=== PATIENT | female | born 1970 | race Caucasian/White ===

== ENCOUNTER 2016-12-06 12:04 | Emergency (ER) | payer MEDICARE, MEDICAID ==
[2016-12-06] MEDS ORDERED: NORMAL SALINE 1,000 ML IV ONE (12:57)
[2016-12-06 13:46] LABS: Urine Bilirubin Negative (NEGATIVE); Urine Blood Negative /ul (NEGATIVE); Urine Ketone Negative (NEGATIVE); Urine Nitrite Negative (NEGATIVE); Urine Protein 15 mg/dL (NEGATIVE); Urine Specific Gravity >=1.030 SP.GR. (1.005-1.010); Urine Urobilinogen Normal (NORMAL)
[2016-12-06 13:50] LABS: Hematocrit 36.1 % (37.0-47.0); Hemoglobin 11.3 gm/dL (12.5-16.0); Mean Cell Volume 89.6 fl (78-100); Mean Corpuscular Hgb Conc 31.3 g/dl (32-36); Mean Platelet Volume 12.1 fl (6.0-9.5); Neutrophil # 4.3 K/mm3 (1.3-6.0); Neutrophil % 65.5 % (42-75.0); Platelet Count 211 K/mm3 (150-450); Red Blood Count 4.03 M/mm3 (4.2-5.4); Red Cell Distribution Width 14.1 % (11.5-14.0); White Blood Count 6.5 K/mm3 (4.0-10.5)
[2016-12-06 14:03] LABS: Urine Color Yellow
[2016-12-06 14:04] LABS: Urine Appearance Clear; Urine Bacteria 2+; Urine Mucus Few - 1+; Urine RBC TRACE /hpf (0-5); Urine Yeast Moderate - 2+
[2016-12-06] MEDS ORDERED: INSULIN LISPRO 100 UNITS/ML VIAL SC ONE (14:05)
[2016-12-06 14:06] LABS: ALT 25 U/L (19-67); AST 17 U/L (0-48); Alkaline Phosphatase * 127 U/L (50-170); Anion Gap 17.6 mmol/L (6.8-13.8); BUN/Creatinine Ratio 23.6 (9.0-21.6); Bilirubin, Total 0.5 mg/dL (0.0-1.1); Blood Urea Nitrogen 37 mg/dL (3-23); Ca. Corrected For Albumin 8.8 mg/dL (8.4-10.2); Calcium * 9.1 mg/dL (7.9-10.9); Carbon Dioxide 19.1 mmol/L (24-32.6); Chloride 107 mmol/L (97-106); Glucose * 166 mg/dL (70-110); Potassium 4.7 mmol/L (3.4-4.6); Sodium 139 mmol/L (132-142); Total Protein 8.2 gm/dL (6.2-8.2)
[2016-12-06] MEDS ORDERED: INSULIN LISPRO 100 UNITS/ML VIAL ONE (14:07)
[2016-12-06 14:50] VITALS: BP 119/71
--- NOTE | 2016-12-06 15:41 | ERNOTE ---
Medical Problem HPI - Narrative Date of Service: 12/06/16 - General Chief Complaint: Diabetes Related Problem Time Seen by Provider: 12/06/16 12:37 Source: patient Exam Limitations: no limitations - Immun/Allergies/Home Medications Immunizations: IMMUNIZATION HX Immunizations Up to Date Yes History of Influenza Vaccine Yes Hx Pneumococcal Vaccination Yes Allergies/Adverse Reactions: Allergies No Known Allergies Allergy (Verified 12/06/16 12:17) Home Medications: HOME MEDICATIONS Levothyroxine Sodium 75 mcg PO DAILY 10/16/12 [Last Taken Unknown] Midodrine HCl 10 mg PO BID 10/16/12 [Last Taken Unknown] Simvastatin 20 mg PO HS 10/16/12 [Last Taken Unknown] Alendronate Sodium 35 mg PO Q7D 01/03/14 [Last Taken Unknown] Atorvastatin Calcium [Lipitor] 10 mg PO DAILY 01/03/14 [Last Taken Unknown] Insulin Glargine,Hum.rec.anlog [Lantus] 12 unit SQ DAILY 01/03/14 [Last Taken Unknown] Insulin Lispro [Humalog] 4 unit SQ TID 01/03/14 [Last Taken Unknown] Tacrolimus [Prograf] 5 mg PO BID 01/03/14 [Last Taken Unknown] predniSONE [Prednisone] 5 mg PO DAILY 01/03/14 [Last Taken Unknown] Ferrous Fumarate [Iron] 55 mg PO DAILY 02/17/14 [Last Taken Unknown] Diphenoxylate HCl/Atrop Sulf [Lomotil] 2.5 mg PO QID PRN #40 tab 10/19/15 [Last Taken Unknown] Ondansetron [Zofran Odt] 4 mg PO Q6H #30 tab.rapdis 10/19/15 [Last Taken Unknown ] traMADol HCL [Ultram] 50 mg PO QID #20 tablet 10/11/16 [Last Taken Unknown] Cefuroxime Axetil [Ceftin] 250 mg PO BID #14 tablet 12/06/16 [Last Taken Unknown ] - History of Present History Narrative: Patient relates she was told to come in by Dr Salinas. Had labs and he wanted her to get IV fluids. She relates she gets frequent IV fluids. No pain over transplant site. no fever, no vomiting. nothing seems to make this better or worse. no vomiting. No CP or SOB, no abdominal pain. She initially tells me she doesnt feel like she needs to be here. Timing: other - She denies any symptoms. Modifying Factors - (Improves): Present: other - none Modifying Factors - (Worsens): Present: other - none Review of Systems - Review of Systems Constitutional: Absent: fever EYE: Absent: blurred vision ENT: Present: no symptoms reported Respiratory: Absent: shortness of breath, cough Cardiology: Absent: chest pain Gastrointestinal/Abdominal: Absent: abdominal pain Genitourinary: Absent: dysuria Musculoskeletal: Present: no symptoms reported - Patient's Past Medical History Patient History - Medical: Diabetes Type 1 Patient History - Cancer: No Hx of Cancer Patient History - Surgical Procedures: No surgical history - Family History Mother Family History - Medical: No pertinent hx Father Family History - Medical: No pertinent hx - Social History Living Situations: home Smoking Status: Current every day smoker Have you smoked in the past 12 months: Yes Do you dip or chew tobacco: No Alcohol Use: none Drug Use: none Physical Exam - Physical Exam General Appearance: Present: alert, no apparent distress. Absent: lethargic, crying Eye Exam: Normal inspection: right, PERRL: right Ears, Nose, Throat: Present: normal ENT inspection. Absent: pharyngeal erythema , pharyngeal swelling Neck: Present: normal inspection, supple Respiratory: Present: no respiratory distress, normal breath sounds, no accessory muscle use, lungs clear Cardiovascular/Chest: Present: regular rate, rhythm, normal peripheral pulses Gastrointestinal/Abdominal: Present: normal bowel sounds, nontender, nondistended, soft, no organomegaly, other - no tenderness over transplant site Back Exam: Absent: CVA tenderness (R), CVA tenderness (L) Extremity Exam: Present: normal inspection Neurological Exam: Present: alert, normal mood/affect, manager lsw II-XII nml as tested. Absent: motor weakness Skin Exam: Present: normal color ED Progress - Results and Orders Patient's Lab Results:: I have reviewed the patient's lab results. - Vital Signs Patient's Vital Signs:: I have reviewed the patient's vital signs. Vital Signs: Vital Signs 12/06/16 12/06/16 12/06/16 12:15 13:43 14:50 Temperature 35.5 C L Pulse Rate 84 84 86 Respiratory 14 12 18 Rate Blood Pressure 132/82 130/84 119/71 O2 Sat by Pulse 100 98 100 Oximetry - Progress/Reassessment Chief Complaint: Diabetes Related Problem Progress:: Improved Progress Note-Subjective: 12/06/16 15:37 patient without c/o. mild UTI. no evidence of sepsis or toxicity. no evidence of ARF. Nothing clinically to suggest acute rejection. No evidnece of DKA. I discussed the case with her Dr, Dr Salinas who recommends outpatient ABx and he will see the patient in the office. I discussed this with her. She is agreeable with the plan. I discussed warning signs and reasons to returnas wll as the need for close f/u. She is requesting to go home. Departure - Departure Clinical Impression: Dehydration, mild Disposition: Home self-care Condition: Stable Instructions: Dehydration, Adult, [id number] Additional Instructions: Rest. Fluids. Antibiotics as directed. Follow-up with Dr Salinas within 48 hours for a re-check./ Return here for fever, vomiting, abdominal pain or if your condition worsens or changes in any way. Referrals: Galo Salinas MD [Primary Care Provider] - Prescriptions: Cefuroxime Axetil [Ceftin] 250 mg PO BID #14 tablet
== END 2016-12-06 15:52 | disposition home or self-care (01) ==
LOC: ER 12:04
DX: E86.0 Dehydration (principal); F17.210 Nicotine dependence, cigarettes, uncomplicated; E10.9 Type 1 diabetes mellitus without complications; Z79.4 Long term (current) use of insulin

== ENCOUNTER 2017-07-08 05:49 | Emergency (ER) | payer MEDICARE, MEDICAID ==
[2017-07-08 06:08] LABS: Hemoglobin 12.1 gm/dL (12.5-16.0); Mean Cell Volume 88.5 fl (78-100); Mean Corpuscular Hemoglobin 28.9 pg (27-31); Mean Corpuscular Hgb Conc 32.7 g/dl (32-36); Mean Platelet Volume 12.5 fl (6.0-9.5); Neutrophil # 2.3 K/mm3 (1.3-6.0); Neutrophil % 34.3 % (42-75.0); Platelet Count 156 K/mm3 (150-450); Red Blood Count 4.18 M/mm3 (4.2-5.4); Red Cell Distribution Width 13.7 % (11.5-14.0); White Blood Count 6.7 K/mm3 (4.0-10.5)
[2017-07-08 06:17] LABS: Anion Gap 16.4 mmol/L (6.8-13.8); BUN/Creatinine Ratio 18.7 (9.0-21.6); Calcium * 8.5 mg/dL (7.9-10.9); Carbon Dioxide 19.1 mmol/L (24-32.6); Estimated Creat Clear 25.2; Potassium 4.5 mmol/L (3.4-4.6)
[2017-07-08] MEDS: NORMAL SALINE 2,000 ML IV ONE (07:09)
--- NOTE | 2017-07-08 07:29 | ERNOTE ---
<Michelle Sosa - Last Filed: 07/08/17 07:26> Dizziness ER Record Time Seen by Provider: 07/08/17 05:57 Source: patient Exam Limitations: no limitations Immunizations: IMMUNIZATION HX Immunizations Up to Date Yes History of Influenza Vaccine Yes Hx Pneumococcal Vaccination Yes Allergies/Adverse Reactions: Allergies Allergy/AdvReac Type Severity Reaction Status Date / Time No Known Allergies Allergy Verified 07/08/17 06:39 Home Medications: HOME MEDICATIONS Levothyroxine Sodium 75 mcg PO DAILY 10/16/12 [Last Taken Unknown] Midodrine HCl 10 mg PO BID 10/16/12 [Last Taken Unknown] Simvastatin 20 mg PO HS 10/16/12 [Last Taken Unknown] Alendronate Sodium 35 mg PO Q7D 01/03/14 [Last Taken Unknown] Atorvastatin Calcium [Lipitor] 10 mg PO DAILY 01/03/14 [Last Taken Unknown] Insulin Lispro [Humalog] 5 unit SQ BID 01/03/14 [Last Taken Unknown] Tacrolimus [Prograf] 5 mg PO BID 01/03/14 [Last Taken Unknown] predniSONE [Prednisone] 5 mg PO DAILY 01/03/14 [Last Taken Unknown] Ferrous Fumarate [Iron] 55 mg PO DAILY 02/17/14 [Last Taken Unknown] Diphenoxylate HCl/Atrop Sulf [Lomotil] 2.5 mg PO QID PRN #40 tab 10/19/15 [Last Taken Unknown] Ondansetron [Zofran Odt] 4 mg PO Q6H #30 tab.rapdis 10/19/15 [Last Taken Unknown ] traMADol HCL [Ultram] 50 mg PO QID #20 tablet 10/11/16 [Last Taken Unknown] Cefuroxime Axetil [Ceftin] 250 mg PO BID #14 tablet 12/06/16 [Last Taken Unknown ] Insulin Detemir [Levemir] 25 units SC QPM 07/08/17 [Last Taken Unknown] Insulin Detemir [Levemir] 28 units SC QAM 07/08/17 [Last Taken Unknown] Meclizine HCl 25 mg PO BID #10 tablet 07/08/17 [Last Taken Unknown] - History of Present Illness Narrative: Here for dizziness for three days. Pt is a noncompliant diabetic Review of Systems - Review of Systems Constitutional: Present: no symptoms reported EYE: Present: no symptoms reported ENT: Present: no symptoms reported Respiratory: Present: no symptoms reported Cardiology: Present: no symptoms reported Gastrointestinal/Abdominal: Present: no symptoms reported Genitourinary: Present: no symptoms reported Musculoskeletal: Present: no symptoms reported Neurological: Present: other - dizziness and light headedness - Patient's Past Medical History Patient History - Medical: Diabetes Type 1, Renal Failure Patient History - Cardiac/Respiratory: No pertinent hx Patient History - Cancer: No Hx of Cancer Patient History - Surgical Procedures: Appendectomy, Patient History - Other: None LMP (Calendar): 10/05/15 - Family History Mother Family History - Medical: No pertinent hx Father Family History - Medical: No pertinent hx - Social History Living Situations: home Abuse History: No History of abuse Psych History: Hx of Depression, Current tx/ever been on anti-depressants or anti-anxiety meds Smoking Status: Current every day smoker Patient requests Smoking Cessation Consult: No Initiate information on Smoking Cessation: No Alcohol Use: none Drug Use: none - Immunizations Immunizations Up to Date: Yes Hx Pneumococcal Vaccination: Yes History of Influenza Vaccine: Yes Physical Exam - Physical Exam General Appearance: Present: wd/wn, alert, no apparent distress, other - pts' blood pressure dropped 40 points systolic upon standing up and she became dizzy Head Exam: Present: normal inspection, no evidence of injury Ears, Nose, Throat: Present: normal ENT inspection Neck: Present: normal inspection, nontender, supple, full range of motion. Absent: carotid bruit Respiratory: Present: no respiratory distress, normal breath sounds, no accessory muscle use, chest nontender, lungs clear Cardiovascular/Chest: Present: regular rate, rhythm, no murmur, normal peripheral pulses Neurological Exam: Present: alert, oriented, normal mood/affect, no motor/ sensory deficits - However pt feels dizzy. Denies any headaches or visual distrubances ED Progress - Vital Signs Patient's Vital Signs:: I have reviewed the patient's vital signs. Vital Signs: Vital Signs 07/08/17 07/08/17 07/08/17 05:57 06:46 07:01 Temperature 36.5 C Pulse Rate 69 77 69 Respiratory 18 12 Rate Blood Pressure 113/72 88/49 O2 Sat by Pulse 100 100 Oximetry - Progress/Reassessment Chief Complaint: Dizziness - Transfer of Care Physician Sign Out: Michelle Sosa Receiving Physician: Nilda Finley Departure Clinical Impression: Dizziness, Dehydration, mild, Dehydration - Departure Disposition: Home self-care Instructions: Vertigo, [id number] Additional Instructions: See the ENT Doctor as scheduled on the 12 of july. Referrals: Galo Salinas MD [Primary Care Provider] - Nik Bruner MD [Courtesy Staff] - 07/12/17 Prescriptions: Meclizine HCl 25 mg PO BID #10 tablet <Nilda Finley - Last Filed: 07/08/17 20:07> Dizziness ER Record Date of Service: 07/08/17 Immunizations: IMMUNIZATION HX Immunizations Up to Date Yes History of Influenza Vaccine Yes Hx Pneumococcal Vaccination Yes ED Progress - Results and Orders Patient's Lab Results:: I have reviewed the patient's lab results. Results and Orders: Laboratory Tests 07/08/17 07/08/17 07/08/17 06:05 06:05 06:05 WBC 6.7 RBC 4.18 L Hgb 12.1 L Hct 37.0 MCV 88.5 MCH 28.9 MCHC 32.7 RDW 13.7 Plt Count 156 MPV 12.5 H Immature Gran % (Auto) 0.10 Immature Gran # (Auto) 0.01 Neutrophils % 34.3 L Lymphocytes % 51.0 Monocytes % 6.4 Eosinophils % 7.5 H Basophils % 0.7 Nucleated RBC % 0.0 Neutrophils # 2.3 Lymphocytes # 3.4 Monocytes # 0.4 Eosinophils # 0.5 Absolute Basophils 0.1 Sodium 136 Plasma Sodium 140 Potassium 4.5 Chloride 105 Carbon Dioxide 19.1 L Anion Gap 16.4 H BUN 37 H D Creatinine 1.98 H D Est GFR (Non-Af Amer) 29 L D BUN/Creatinine Ratio 18.7 Random Glucose 364 H Mean Blood Glucose 247 Hemoglobin A1c 10.0 H Calcium 8.5 TSH Urine Color Urine Appearance Urine pH Ur Specific [place] Urine Protein Urine Glucose (UA) Urine Ketones Urine Blood Urine Nitrate Urine Bilirubin Prot Sulfosalicylic Acd Urine Urobilinogen Ur Leukocyte Esterase Urine RBC Urine WBC Ur Epithelial Cells Urine Bacteria Urine Opiates Screen Barbiturate Screen Ur Phencyclidine Scrn Urine Amphetamine U Benzodiazepines Scrn Urine Cocaine Screen Urine Marijuana (THC) Serum Ketones 07/08/17 07/08/17 07/08/17 06:05 06:30 08:55 WBC RBC Hgb Hct MCV MCH MCHC RDW Plt Count MPV Immature Gran % (Auto) Immature Gran # (Auto) Neutrophils % Lymphocytes % Monocytes % Eosinophils % Basophils % Nucleated RBC % Neutrophils # Lymphocytes # Monocytes # Eosinophils # Absolute Basophils Sodium Plasma Sodium Potassium Chloride Carbon Dioxide Anion Gap BUN Creatinine Est GFR (Non-Af Amer) BUN/Creatinine Ratio Random Glucose Mean Blood Glucose Hemoglobin A1c Calcium TSH 3.734 Urine Color Yellow Urine Appearance Clear Urine pH 5.5 Ur Specific [place] 1.020 Urine Protein 15 H Urine Glucose (UA) 500 H Urine Ketones Negative Urine Blood Negative Urine Nitrate Negative Urine Bilirubin Negative Prot Sulfosalicylic Acd 1+ Urine Urobilinogen Normal Ur Leukocyte Esterase Negative Urine RBC None seen Urine WBC None seen Ur Epithelial Cells 0-5 Urine Bacteria Trace Urine Opiates Screen Barbiturate Screen Ur Phencyclidine Scrn Urine Amphetamine U Benzodiazepines Scrn Urine Cocaine Screen Urine Marijuana (THC) Serum Ketones Negative 07/08/17 08:55 WBC RBC Hgb Hct MCV MCH MCHC RDW Plt Count MPV Immature Gran % (Auto) Immature Gran # (Auto) Neutrophils % Lymphocytes % Monocytes % Eosinophils % Basophils % Nucleated RBC % Neutrophils # Lymphocytes # Monocytes # Eosinophils # Absolute Basophils Sodium Plasma Sodium Potassium Chloride Carbon Dioxide Anion Gap BUN Creatinine Est GFR (Non-Af Amer) BUN/Creatinine Ratio Random Glucose Mean Blood Glucose Hemoglobin A1c Calcium TSH Urine Color Urine Appearance Urine pH Ur Specific [place] Urine Protein Urine Glucose (UA) Urine Ketones Urine Blood Urine Nitrate Urine Bilirubin Prot Sulfosalicylic Acd Urine Urobilinogen Ur Leukocyte Esterase Urine RBC Urine WBC Ur Epithelial Cells Urine Bacteria Urine Opiates Screen Negative Barbiturate Screen Positive H Ur Phencyclidine Scrn Negative Urine Amphetamine Negative U Benzodiazepines Scrn Negative Urine Cocaine Screen Negative Urine Marijuana (THC) Negative Serum Ketones - Vital Signs Patient's Vital Signs:: I have reviewed the patient's vital signs. Vital Signs: Vital Signs 07/08/17 07/08/17 07/08/17 05:57 06:46 07:01 Temperature 36.5 C Pulse Rate 69 77 69 Respiratory 18 12 Rate Blood Pressure 113/72 88/49 O2 Sat by Pulse 100 100 Oximetry 07/08/17 07/08/17 07/08/17 07:37 08:01 08:30 Temperature Pulse Rate 69 70 66 Respiratory 14 12 14 Rate Blood Pressure 158/66 122/47 147/69 O2 Sat by Pulse 100 99 98 Oximetry 07/08/17 07/08/17 07/08/17 09:03 09:24 09:47 Temperature Pulse Rate 70 66 70 Respiratory 14 12 12 Rate Blood Pressure 137/71 140/64 141/62 O2 Sat by Pulse 100 98 100 Oximetry Plan - Plan Plan: Patient seen and examined meclizine improved dizziness and she is stable for discharge. Patient vitals 137/63 and pulse 77 and 100% pulse ox on room air
[2017-07-08] MEDS ORDERED: INSULIN REGULAR, HUMAN 100 UNITS/ML VIAL ONE (07:31)
[2017-07-08] MEDS: INSULIN REGULAR, HUMAN 100 UNITS/ML VIAL IV ONE (07:35)
[2017-07-08] MEDS ORDERED: MECLIZINE HCL 25 MG TABLET PO ONE (08:45)
[2017-07-08] MEDS ORDERED: MECLIZINE HCL 25 MG TABLET ONE (08:47)
[2017-07-08] MEDS: MECLIZINE HCL 25 MG TABLET PO ONE (08:50)
[2017-07-08 09:14] LABS: Urine Bilirubin Negative (NEGATIVE); Urine Blood Negative /ul (NEGATIVE); Urine Ketone Negative (NEGATIVE); Urine Nitrite Negative (NEGATIVE); Urine Protein 15 mg/dL (NEGATIVE); Urine Urobilinogen Normal (NORMAL); Urine pH 5.5 pH (5.0-7.0)
[2017-07-08 09:24] LABS: Urine Appearance Clear; Urine Color Yellow
[2017-07-08 09:25] LABS: Urine Bacteria TRACE; Urine RBC None Seen /hpf (0-5); Urine WBC None Seen /hpf (0-5)
[2017-07-08 09:27] LABS: Cocaine Ur Negative (NEGATIVE); Urine Benzodiazepines Negative (NEGATIVE); Urine Opiates Negative (NEGATIVE); Urine PCP Negative (NEGATIVE); Urine THC Negative (NEGATIVE)
[2017-07-08 09:40] LABS: Urine Barbiturate Positive (NEGATIVE)
[2017-07-08 09:48] VITALS: BP 141/62
== END 2017-07-08 10:30 | disposition home or self-care (01) ==
LOC: ER 05:49
DX: R42 Dizziness and giddiness (principal); E86.0 Dehydration; E10.9 Type 1 diabetes mellitus without complications; Z79.4 Long term (current) use of insulin; N19 Unspecified kidney failure; F17.200 Nicotine dependence, unspecified, uncomplicated

== ENCOUNTER 2017-09-08 14:45 | Emergency (ER) | payer MEDICARE, MEDICAID ==
[2017-09-08 15:03] VITALS: BP 143/88
--- NOTE | 2017-09-08 15:49 | ERNOTE ---
Back Pain ER HPI Date of Service: 09/08/17 Presenting Symptoms: hx chronic back pain Time Seen by Provider: 09/08/17 15:31 Immunizations: IMMUNIZATION HX Immunizations Up to Date Yes History of Influenza Vaccine No Hx Pneumococcal Vaccination Yes Allergies/Adverse Reactions: Allergies No Known Allergies Allergy (Verified 09/08/17 14:56) Home Medications: HOME MEDICATIONS Levothyroxine Sodium 75 mcg PO DAILY 10/16/12 [Last Taken Unknown] Midodrine HCl 10 mg PO BID 10/16/12 [Last Taken Unknown] Simvastatin 20 mg PO HS 10/16/12 [Last Taken Unknown] Alendronate Sodium 35 mg PO Q7D 01/03/14 [Last Taken Unknown] Atorvastatin Calcium [Lipitor] 10 mg PO DAILY 01/03/14 [Last Taken Unknown] Insulin Lispro [Humalog] 5 unit SQ BID 01/03/14 [Last Taken Unknown] Tacrolimus [Prograf] 5 mg PO BID 01/03/14 [Last Taken Unknown] predniSONE [Prednisone] 5 mg PO DAILY 01/03/14 [Last Taken Unknown] Ferrous Fumarate [Iron] 55 mg PO DAILY 02/17/14 [Last Taken Unknown] Diphenoxylate HCl/Atrop Sulf [Lomotil] 2.5 mg PO QID PRN #40 tab 10/19/15 [Last Taken Unknown] Insulin Detemir [Levemir] 25 units SC QPM 07/08/17 [Last Taken Unknown] Insulin Detemir [Levemir] 28 units SC QAM 07/08/17 [Last Taken Unknown] Meclizine HCl 25 mg PO BID #10 tablet 07/08/17 [Last Taken Unknown] Baclofen 20 mg PO TID #30 tablet 09/08/17 [Last Taken Unknown] Diclofenac Sodium 25 mg PO BID #30 tablet. 09/08/17 [Last Taken Unknown] oxyCODONE HCL/ACETAMINOPHEN [Percocet 5 MG/325 MG] 1 tab PO Q4H 09/08/17 [Last Taken Unknown] Narrative: Pt. comes in with C/o low back pain. Pt. staes taht the pain is chronic for her and she has not had any new injuries and the pain has not changed. Pt. usually sees Dr Salinas for her pain medications but is out of them but is contracted with him. Pt. states that she is scheduled for an injection in her back on the 8th. Review of Systems - Review of Systems Constitutional: Present: no symptoms reported. Absent: recent illness, fever, chills, weakness, fatigue, malaise EYE: Present: no symptoms reported ENT: Present: no symptoms reported Respiratory: Present: no symptoms reported. Absent: shortness of breath, cough , wheezing Cardiology: Present: no symptoms reported. Absent: chest pain, palpitations, edema Gastrointestinal/Abdominal: Present: no symptoms reported. Absent: nausea, vomiting, diarrhea Genitourinary: Present: no symptoms reported. Absent: frequency, pain, dysuria , hematuria, decreased urinary output, discharge Musculoskeletal: Present: back pain. Absent: muscle pain, neck pain, joint pain Skin: Present: no symptoms reported. Absent: rash, change in hair/nails Neurological: Present: no symptoms reported. Absent: headache, dizziness/light- headedness, numbness, tingling All Other Systems: All systems neg except as marked - Patient's Past Medical History Patient History - Medical: Diabetes Type 1, Renal Failure Patient History - Cardiac/Respiratory: No pertinent hx Patient History - Cancer: No Hx of Cancer Patient History - Surgical Procedures: Appendectomy, Patient History - Other: None - Family History Mother Family History - Medical: No pertinent hx Father Family History - Medical: No pertinent hx - Social History Living Situations: home Abuse History: No History of abuse Psych History: Hx of Depression, Current tx/ever been on anti-depressants or anti-anxiety meds Smoking Status: Current every day smoker - Immunizations Immunizations Up to Date: Yes Hx Pneumococcal Vaccination: Yes History of Influenza Vaccine: No Physical Exam - Physical Exam General Appearance: Present: wd/wn, alert, no apparent distress Head Exam: Present: normal inspection, no evidence of injury Eye Exam: Normal inspection: bilateral Neck: Present: normal inspection, nontender, supple, full range of motion. Absent: lymphadenopathy (R), lymphadenopathy (L) Respiratory: Present: no respiratory distress, normal breath sounds, no accessory muscle use, chest nontender, lungs clear Cardiovascular/Chest: Present: regular rate, rhythm, no murmur, normal peripheral pulses Gastrointestinal/Abdominal: Present: normal bowel sounds, nontender, nondistended, soft, no organomegaly Back Exam: Present: vertebral tenderness - L3/L4, muscle spasm - B Extremity Exam: Present: normal inspection, non-tender, normal range of motion, no edema Neurological Exam: Present: alert, oriented, normal mood/affect, no motor/ sensory deficits, [employer]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 Absent: pallor, skin rash ED Progress - Date and Time Seen: Date and Time: 09/08/17 15:46 Discussed with pt. and while she has renal insufficiency she would like to try diclofinac. Will prescribe low amount and educated pt. to take is sparingly and educated her to have her kidney function evaluated if she starts feeling poorly. - Vital Signs Patient's Vital Signs:: I have reviewed the patient's vital signs. Vital Signs: Vital Signs 09/08/17 14:59 Temperature 36.9 C Pulse Rate 77 Respiratory 16 Rate Blood Pressure 143/88 O2 Sat by Pulse 100 Oximetry - Progress/Reassessment Chief Complaint: Back Pain Departure Clinical Impression: Back pain Qualifiers: Back pain location: low back pain Chronicity: chronic Back pain laterality: bilateral Sciatica presence: without sciatica Qualified Code(s): M54.5 - Low back pain - Departure Disposition: Home self-care Condition: Good Instructions: Back Pain, Adult Additional Instructions: Please follow up wih your primary provider as planned. These medications can affect your kidneys so please take only as needed. Prescriptions: Baclofen 20 mg PO TID #30 tablet Diclofenac Sodium 25 mg PO BID #30 tablet.
== END 2017-09-08 15:49 | disposition home or self-care (01) ==
LOC: SUPCPDRO 14:45 → ER 14:45
DX: M54.5 Low back pain (principal); E10.22 Type 1 diabetes mellitus with diabetic chronic kidney disease; F17.200 Nicotine dependence, unspecified, uncomplicated

== ENCOUNTER 2017-10-28 07:57 | Emergency (ER) | payer MEDICARE, MEDICAID ==
[2017-10-28] MEDS ORDERED: NORMAL SALINE 1,000 ML IV ONE (08:24)
[2017-10-28 08:39] LABS: Hematocrit 36.6 % (37.0-47.0); Hemoglobin 11.8 gm/dL (12.5-16.0); Mean Cell Volume 90.4 fl (78-100); Mean Corpuscular Hemoglobin 29.1 pg (27-31); Mean Corpuscular Hgb Conc 32.2 g/dl (32-36); Mean Platelet Volume 11.8 fl (6.0-9.5); Neutrophil # 2.6 K/mm3 (1.3-6.0); Platelet Count 189 K/mm3 (150-450); Red Blood Count 4.05 M/mm3 (4.2-5.4); Red Cell Distribution Width 13.2 % (11.5-14.0); White Blood Count 6.7 K/mm3 (4.0-10.5)
--- NOTE | 2017-10-28 08:41 | ERNOTE ---
Medical Problem HPI - General Chief Complaint: General Assessment Time Seen by Provider: 10/28/17 08:19 Source: patient Exam Limitations: no limitations - Immun/Allergies/Home Medications Immunizations: IMMUNIZATION HX Immunizations Up to Date Yes History of Influenza Vaccine Yes Hx Pneumococcal Vaccination No Allergies/Adverse Reactions: Allergies No Known Allergies Allergy (Verified 10/28/17 08:10) Home Medications: HOME MEDICATIONS Levothyroxine Sodium 75 mcg PO DAILY 10/16/12 [Last Taken Unknown] Midodrine HCl 10 mg PO BID 10/16/12 [Last Taken Unknown] Simvastatin 20 mg PO HS 10/16/12 [Last Taken Unknown] Alendronate Sodium 35 mg PO Q7D 01/03/14 [Last Taken Unknown] Atorvastatin Calcium [Lipitor] 10 mg PO DAILY 01/03/14 [Last Taken Unknown] Insulin Lispro [Humalog] 5 unit SQ BID 01/03/14 [Last Taken Unknown] Tacrolimus [Prograf] 5 mg PO BID 01/03/14 [Last Taken Unknown] predniSONE [Prednisone] 5 mg PO DAILY 01/03/14 [Last Taken Unknown] Ferrous Fumarate [Iron] 55 mg PO DAILY 02/17/14 [Last Taken Unknown] Diphenoxylate HCl/Atrop Sulf [Lomotil] 2.5 mg PO QID PRN #40 tab 10/19/15 [Last Taken Unknown] Insulin Detemir [Levemir] 25 units SC QPM 07/08/17 [Last Taken Unknown] Insulin Detemir [Levemir] 28 units SC QAM 07/08/17 [Last Taken Unknown] Meclizine HCl 25 mg PO BID #10 tablet 07/08/17 [Last Taken Unknown] Baclofen 20 mg PO TID #30 tablet 09/08/17 [Last Taken Unknown] Diclofenac Sodium 25 mg PO BID #30 tablet. 09/08/17 [Last Taken Unknown] oxyCODONE HCL/ACETAMINOPHEN [Percocet 5 MG/325 MG] 1 tab PO Q4H 09/08/17 [Last Taken Unknown] - History of Present History Narrative: Patient presents to the emergency room because she was told by her pumper hand at the [facility] that she was dehydrated and needed to come in for IV fluids. However upon perusal of her labs I see that her hemoglobin A1c remains at 10 which be statistically her blood sugar has been running on an average of 275 and that most likely is the source of the progressing renal failure. Patient has no significant complaint at this time. Timing: unsure Review of Systems - Review of Systems Constitutional: Present: See HPI EYE: Present: no symptoms reported ENT: Present: no symptoms reported Respiratory: Present: no symptoms reported Cardiology: Present: no symptoms reported Gastrointestinal/Abdominal: Present: no symptoms reported Genitourinary: Present: no symptoms reported Musculoskeletal: Present: no symptoms reported Skin: Present: no symptoms reported Neurological: Present: no symptoms reported Endocrine: Present: no symptoms reported Hematologic/Lymphatic: Present: no symptoms reported Psych: Present: no symptoms reported - Patient's Past Medical History Patient History - Medical: Diabetes Type 1, Renal Failure Patient History - Cardiac/Respiratory: No pertinent hx Patient History - Cancer: No Hx of Cancer Patient History - Surgical Procedures: Appendectomy, Patient History - Other: None LMP (females 10-50): last week LMP (Calendar): 10/20/17 - Family History Mother Family History - Medical: No pertinent hx Father Family History - Medical: No pertinent hx - Social History Living Situations: home Abuse History: No History of abuse Psych History: Hx of Depression, Current tx/ever been on anti-depressants or anti-anxiety meds Smoking Status: Current every day smoker Have you smoked in the past 12 months: Yes Do you dip or chew tobacco: No Alcohol Use: none Drug Use: none - Immunizations Immunizations Up to Date: Yes Hx Pneumococcal Vaccination: No History of Influenza Vaccine: Yes Physical Exam - Physical Exam General Appearance: Present: wd/wn, alert, no apparent distress Eye Exam: Normal inspection: bilateral, PERRL: bilateral Ears, Nose, Throat: Present: normal ENT inspection, H, normal pharynx Neck: Present: normal inspection, nontender Respiratory: Present: no respiratory distress, normal breath sounds, no accessory muscle use, chest nontender, lungs clear Cardiovascular/Chest: Present: regular rate, rhythm, no murmur, normal peripheral pulses Gastrointestinal/Abdominal: Present: normal bowel sounds, nontender, nondistended, soft, no organomegaly Rectal Exam: Present: deferred Back Exam: Present: normal inspection, normal range of motion Extremity Exam: Present: normal inspection, non-tender, no edema, normal range of motion Neurological Exam: Present: alert, oriented, normal mood/affect Skin Exam: Present: normal color, warm/dry Lymphatic Exam: Present: no adenopathy ED Progress - Results and Orders Patient's Lab Results:: I have reviewed the patient's lab results. - Vital Signs Patient's Vital Signs:: I have reviewed the patient's vital signs. Vital Signs: Vital Signs 10/28/17 08:03 Temperature 36.4 C L Pulse Rate 94 Respiratory 12 Rate Blood Pressure 110/74 - Progress/Reassessment Chief Complaint: General Assessment Plan - Plan Plan: We will provide a liter of normal saline to the patient to try to provide some component of protective mechanism for her kidneys, however she was counseled at length that if she does not get her every blood sugar down below 130 there is a high likelihood that this renal failure is only going to progress. Even her last two fasting blood sugars have been 247 which is certainly indicative of her blood sugars remaining high and that is being reflected in the elevated hemoglobin A1c of 10.0. Patient will be referred back to both her family physician and her pumper hand at the [facility]. Departure Clinical Impression: Dehydration, mild Chronic kidney disease (CKD) Qualifiers: Chronic kidney disease stage: stage 4 (severe) Qualified Code(s): N18.4 - Chronic kidney disease, stage 4 (severe) - Departure Disposition: Home self-care Condition: Good Instructions: Chronic Kidney Disease, K[place]-Vlwy, End-Stage Kidney Disease Additional Instructions: try to maintain your blood sugar below 130 Referrals: Galo Salinas MD [Primary Care Provider] -
[2017-10-28 08:55] LABS: ALT 17 U/L (19-67); AST 13 U/L (0-48); Albumin * 3.7 gm/dl (3.4-5.0); Alkaline Phosphatase * 121 U/L (50-170); Anion Gap 13.6 mmol/L (6.8-13.8); BUN/Creatinine Ratio 15.2 (9.0-21.6); Bilirubin, Total 0.2 mg/dL (0.0-1.1); Blood Urea Nitrogen 47 mg/dL (3-23); Ca. Corrected For Albumin 9.3 mg/dL (8.4-10.2); Calcium * 9.4 mg/dL (7.9-10.9); Carbon Dioxide 27.4 mmol/L (24-32.6); Chloride 106 mmol/L (97-106); Glucose * 115 mg/dL (70-110); Magnesium 2.4 mg/dL (1.2-2.8); Sodium 143 mmol/L (132-142)
[2017-10-28 09:51] VITALS: BP 146/69
== END 2017-10-28 09:41 | disposition home or self-care (01) ==
LOC: ER 07:57
DX: F17.200 Nicotine dependence, unspecified, uncomplicated; N18.4 Chronic kidney disease, stage 4 (severe); E86.0 Dehydration
CPT/HCPCS: 36415; 80053; 82009; 83735; 85025; 96360; 99285

== ENCOUNTER 2018-07-28 04:25 | Observation (INO) | payer MEDICAID, MEDICARE ==
--- NOTE | 2018-07-28 04:57 | ERNOTE ---
Neuro HPI ER Record Presenting Symptoms: confusion Time Seen by Provider: 07/28/18 04:25 Source: EMS Exam Limitations: clinical condition Immunizations: IMMUNIZATION HX Immunizations Up to Date Yes History of Influenza Vaccine Yes Hx Pneumococcal Vaccination Yes Allergies/Adverse Reactions: Allergies Allergy/AdvReac Type Severity Reaction Status Date / Time No Known Allergies Allergy Verified 07/28/18 05:09 Home Medications: HOME MEDICATIONS Levothyroxine Sodium 75 mcg PO DAILY 10/16/12 [Last Taken Unknown] Midodrine HCl 10 mg PO BID 10/16/12 [Last Taken Unknown] Simvastatin 20 mg PO HS 10/16/12 [Last Taken Unknown] Alendronate Sodium 35 mg PO Q7D 01/03/14 [Last Taken Unknown] Tacrolimus [Prograf] 5 mg PO BID 01/03/14 [Last Taken Unknown] predniSONE [Prednisone] 5 mg PO DAILY 01/03/14 [Last Taken Unknown] Diphenoxylate HCl/Atrop Sulf [Lomotil] 2.5 mg PO QID PRN #40 tab 10/19/15 [Last Taken Unknown] aspirin 81 mg tablet,delayed release 81 mg PO DAILY 07/17/18 [Last Taken Unknown ] kamkuvoovh-sntrsqtfhcexl-wckyhrym 50 mg-325 mg-40 mg capsule 2 cap PO Q6H PRN cap 07/17/18 [Last Taken Unknown] cholecalciferol (vitamin D3) 5,000 unit capsule 5,000 unit PO DAILY 07/17/18 [ Last Taken Unknown] glucagon (human recombinant) 1 mg injection kit 1 mg SUB-Q ONCE PRN ea [Last Taken Unknown] loperamide 2 mg capsule 2 mg PO Q4H 07/17/18 [Last Taken Unknown] magnesium oxide 400 mg tablet 400 mg PO BID tab 07/17/18 [Last Taken Unknown] mycophenolate mofetil 500 mg tablet 1,000 mg PO BID tab 07/17/18 [Last Taken Unknown] omeprazole 20 mg capsule,delayed release 20 mg PO BID 07/17/18 [Last Taken Unknown] ondansetron 4 mg disintegrating tablet 4 mg PO Q6H PRN 07/17/18 [Last Taken Unknown] polysaccharide iron complex 150 mg iron capsule 150 mg PO DAILY cap 07/17/18 [ Last Taken Unknown] promethazine 25 mg tablet 25 mg PO Q4H 07/17/18 [Last Taken Unknown] oxycodone-acetaminophen 5 mg-325 mg tablet 1 tab PO Q6H PRN tab 07/18/18 [Last Taken Unknown] insulin detemir (U-100) 100 unit/mL subcutaneous solution 6 unit SUB-Q TIDWM ml 07/26/18 [Last Taken Unknown] insulin glargine (U-300) 300 unit/mL (1.5 mL) subcutaneous pen 18 unit SUB-Q BID ml 07/26/18 [Last Taken Unknown] - History of Present Illness Narrative: EMS reports that per family patient was acting confused during the night. Patient answers name and keeps saying ow without being able to state where she has pain she is a type 1 diabetic, status post kidney transplant x2 and pancreas transplant, non compliant with treatment Later reports on the phone to the nurse that patient started to act confused around 01:00 has had a prior episode of this, but he can't remember what the diagnosis was Patient has chronic pain, has been receiving percocet from Dr Salinas #120 per month, had early refill on 07/11 (#150). When she had an office visit with Dr Stokes two days ago (07/26) she had used up all of it and Dr Stokes refused a refill but suggested referral to a pain clinic Onset: cannot confirm onset - Character of Deficits Prior Treament: Reports: recently seen Review of Systems - Narrative Narrative: unable to assess Medical History (Last Reviewed 07/28/18 @ 04:44 by Dawn Garibay MD) Diabetes Onset Date: ~1980 Epilepsy Hypoglycemia Hypotension Hypothyroidism Patellofemoral syndrome Onset Date: ~09/19/13 CVA (cerebral vascular accident) Surgical History: Surgical History (Last Reviewed 07/28/18 @ 04:44 by Dawn Garibay MD) H/O section Onset Date: ~09/1991 H/O dilation and curettage Onset Date: ~1989 H/O eye surgery Onset Date: ~1990 Kidney transplant recipient Onset Date: ~2004 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 Onset Date: ~2005 Family History: Family History (Last Reviewed 07/28/18 @ 05:09 by Traci Collins RN) Mother Hypertension Grandfather Cancer Grandmother Cancer Social History: Preferred Language Persian Abuse History No History of abuse Psych History No pertinent hx,Hx of Anxiety,Hx of Depression, Hx of Bipolar Disorder Physical Exam - Physical Exam General Appearance: Present: wd/wn, alert, no apparent distress, other - confused Head Exam: Present: normal inspection, no evidence of injury Eye Exam: Normal inspection: bilateral, PERRL: bilateral Ears, Nose, Throat: Present: normal pharynx Neck: Present: normal inspection, nontender Respiratory: Present: no respiratory distress, normal breath sounds, lungs clear Cardiovascular/Chest: Present: regular rate, rhythm, no murmur Gastrointestinal/Abdominal: Present: nontender, nondistended, soft Extremity Exam: Present: no edema Neurological Exam: Present: alert, other - patient answers question of name appropiately, but answers name of town or 'ow' to other questions, doesn't follow commands but moves all extremties. Absent: disoriented to time, disoriented to place, disoriented to situation Skin Exam: Present: normal color, warm/dry Darshan Coma Scale - Assess Eye Opening: Spontaneous Motor: Localizes to Pain Verbal: Confused - Total Coma Scale Total: 13 Initial Stroke Assessment - NIH Stroke Scale Level of Consciousness: Alert LOC Questions (Year and Age): Answers neither correctly LOC Commands (open/close eyes/fist): Performs neither correct Facial Palsy: Normal movement Right Arm Motor (10 sec hold): No drift Left Arm Motor (10 sec hold): No drift Dysarthria (speech clarity): Normal articulation ED Progress - Results and Orders Patient's Lab Results:: I have reviewed the patient's lab results. - Vital Signs Patient's Vital Signs:: I have reviewed the patient's vital signs. Vital Signs: Vital Signs 07/28/18 04:30 Temperature 36.5 C Pulse Rate 70 Respiratory Rate 15 Blood Pressure 189/64 H O2 Sat by Pulse Oximetry 100 - EKG EKG: NSR, nonspecific ST T wave changes EKG read: Interp. by me - CT/Ultrasound CT/Ultrasound Narrative: CT: microvascular gliosis - Progress/Reassessment Chief Complaint: Altered Mental Status Progress Note-Subjective: 07/28/18 05:51 patient sleeping, O2sat 99%, BP 135/60 07/28/18 06:20 patient's vitals stable but hard to wake up, responds to sternal rub only 07/28/18 06:36 no change after giving narcan 0.5mg 07/28/18 06:[address] Eastman, okay to admit for observation Departure Clinical Impression: Confusion, Lethargic - Departure Disposition: Still a patient Condition: Stable
[2018-07-28 04:58] LABS: Mean Cell Volume 90.2 fl (78-100); Mean Corpuscular Hemoglobin 29.2 pg (27-31); Mean Corpuscular Hgb Conc 32.4 g/dl (32-36); Mean Platelet Volume 12.4 fl (8-12.5); Neutrophil # 6.7 K/mm3 (1.3-6.0); Neutrophil % 67.4 % (42-75.0); Platelet Count 152 K/mm3 (150-450); Red Blood Count 3.77 M/mm3 (4.2-5.4); Red Cell Distribution Width 14.6 % (11.5-14.0)
[2018-07-28 05:11] LABS: Urine Bilirubin Negative (NEGATIVE); Urine Ketone 5 mg/dL (NEGATIVE); Urine Nitrite Negative (NEGATIVE); Urine Protein 15 mg/dL (NEGATIVE); Urine Specific Gravity 1.015 SP.GR. (1.005-1.010); Urine Urobilinogen Normal (NORMAL)
[2018-07-28 05:12] LABS: ALT 16 U/L (19-67); AST 12 U/L (0-48); Alkaline Phosphatase * 116 U/L (50-170); Anion Gap 13.4 mmol/L (6.8-13.8); BUN/Creatinine Ratio 17.6 (9.0-21.6); Bilirubin, Total 0.2 mg/dL (0.0-1.1); Blood Urea Nitrogen 41 mg/dL (3-23); Ca. Corrected For Albumin 8.7 mg/dL (8.4-10.2); Carbon Dioxide 24.8 mmol/L (24-32.6); Chloride 102 mmol/L (97-106); Glucose * 309 mg/dL (70-110); Potassium 4.2 mmol/L (3.4-4.6); Sodium 136 mmol/L (132-142); Total Protein 8.1 gm/dL (6.2-8.2)
[2018-07-28 05:16] LABS: Urine Blood 10 /ul (NEGATIVE)
[2018-07-28 05:17] LABS: Urine Appearance Slightly Cloudy (CLEAR); Urine Bacteria 2+; Urine Color Yellow; Urine RBC 0-5 /hpf (0-5)
[2018-07-28 05:22] LABS: Cocaine Ur Negative (NEGATIVE); Urine Benzodiazepines Negative (NEGATIVE); Urine Opiates Negative (NEGATIVE); Urine PCP Negative (NEGATIVE); Urine THC Negative (NEGATIVE)
[2018-07-28 05:24] LABS: Urine Barbiturate Positive (NEGATIVE)
[2018-07-28] MEDS: NORMAL SALINE 1,000 ML IV ONE ×2 (06:00→11:34)
[2018-07-28] MEDS ORDERED: NALOXONE HCL 1 MG/1 ML SYRG IV ONE (06:24)
[2018-07-28] MEDS ORDERED: NALOXONE HCL 1 MG/1 ML SYRG ONE (06:25)
--- NOTE | 2018-07-28 10:18 | HP ---
Chief Complaint - Chief Complaint Date of Service: 07/28/18 Time of Service: 10:12 Chief Complaint: altered mental status History of Present Illness: Lady Miller,, is a 48-year-old white female, recently established care with Dr. Stokes , with past medical history of diabetes mellitus type 1, cerebrovascular accident, hypothyroidism, kidney transplants x 2 , Mograine who was admitted to the hospital on 07/28/2018 because of altered mental status. The patient does not respond or answer my questions and does not follow my commands. She will open her eyes at times but closes it again. I am not able to get a history from her. Based on the emergency room notes, the patient was acting confused during the night. She has a history of chronic pain syndrome and has been receiving Percocet from Dr. Salinas. She recently established care with Dr. Stokes and was asking for a refill. She was referred to a pain clinic. Her urine drug screen was negative except for barbiturate. She takes Butalbital/Acetominophen for her Migraine. Her acemoniphen level was normal therefore she likely has no barbiturate overdose. Her Cr is 2.33. Her Head CTS showed no acute intracranial process going on. WBC was normal. Her UA showed bacteruria but no nitrartes, leukocyte esterase. She was given 1 dose of narcan in the emergency room which did not improve her mental status. As per ED physician she had to do sternal rub to wake her up but then she would just go back to sleep. Patient answered her name and kept saying "ow" when she is awake without being able to state where she has pain She was then admitted for further observation. 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 Onset Date: ~2005 Family History: Family History (Last Reviewed 07/28/18 @ 05:09 by Traci Collins RN) Mother Hypertension Grandfather Cancer Grandmother Cancer Social History: Preferred Language Belarusian Smoking Status Never smoker Have you smoked in the past 12 No months Abuse History No History of abuse Psych History No pertinent hx,Hx of Anxiety,Hx of Depression, Hx of Bipolar Disorder Review Of Systems (GEN) - Review of Systems Additional Comments: unable to obtain due to altered mental status Immunizations: IMMUNIZATION HX Immunizations Up to Date Yes History of Influenza Vaccine Yes Hx Pneumococcal Vaccination Yes Allergies/Adverse Reactions: Allergies Allergy/AdvReac Type Severity Reaction Status Date / Time No Known Allergies Allergy Verified 07/28/18 05:09 Home Medications: HOME MEDICATIONS Levothyroxine Sodium 75 mcg PO DAILY 10/16/12 [Last Taken Unknown] Midodrine HCl 10 mg PO BID 10/16/12 [Last Taken Unknown] Simvastatin 20 mg PO HS 10/16/12 [Last Taken Unknown] Alendronate Sodium 35 mg PO Q7D 01/03/14 [Last Taken Unknown] Tacrolimus [Prograf] 5 mg PO BID 01/03/14 [Last Taken Unknown] predniSONE [Prednisone] 5 mg PO DAILY 01/03/14 [Last Taken Unknown] Diphenoxylate HCl/Atrop Sulf [Lomotil] 2.5 mg PO QID PRN #40 tab 10/19/15 [Last Taken Unknown] aspirin 81 mg tablet,delayed release 81 mg PO DAILY 07/17/18 [Last Taken Unknown ] hevciwrapp-tvgrlcgddzunt-proqxtxr 50 mg-325 mg-40 mg capsule 2 cap PO Q6H PRN cap 07/17/18 [Last Taken Unknown] cholecalciferol (vitamin D3) 5,000 unit capsule 5,000 unit PO DAILY 07/17/18 [ Last Taken Unknown] glucagon (human recombinant) 1 mg injection kit 1 mg SUB-Q ONCE PRN ea [Last Taken Unknown] loperamide 2 mg capsule 2 mg PO Q4H 07/17/18 [Last Taken Unknown] magnesium oxide 400 mg tablet 400 mg PO BID tab 07/17/18 [Last Taken Unknown] mycophenolate mofetil 500 mg tablet 1,000 mg PO BID tab 07/17/18 [Last Taken Unknown] omeprazole 20 mg capsule,delayed release 20 mg PO BID 07/17/18 [Last Taken Unknown] ondansetron 4 mg disintegrating tablet 4 mg PO Q6H PRN 07/17/18 [Last Taken Unknown] polysaccharide iron complex 150 mg iron capsule 150 mg PO DAILY cap 07/17/18 [ Last Taken Unknown] promethazine 25 mg tablet 25 mg PO Q4H 07/17/18 [Last Taken Unknown] oxycodone-acetaminophen 5 mg-325 mg tablet 1 tab PO Q6H PRN tab 07/18/18 [Last Taken Unknown] insulin detemir (U-100) 100 unit/mL subcutaneous solution 6 unit SUB-Q TIDWM ml 07/26/18 [Last Taken Unknown] insulin glargine (U-300) 300 unit/mL (1.5 mL) subcutaneous pen 18 unit SUB-Q BID ml 07/26/18 [Last Taken Unknown] Exam - Exam Vital Signs: Vital Signs - Last Taken Temp 36.7 C 07/28/18 09:00 Pulse 67 07/28/18 09:00 Resp 18 07/28/18 09:00 BP 188/76 H 07/28/18 09:00 Pulse Ox 100 07/28/18 09:00 Constitutional: Present: Alert - AAO x 1 - wakes up at tomes to name call but at times only to sternal rub Eye Exam: bilateral eye: normal inspection, PERRL - sluggishly reactive, EOMI Neck: Present: supple Respiratory: Present: decreased breath sounds, No rales, No wheezing Cardiovascular/Chest: Present: regular rate, rhythm, no JVD, no murmur Abdomen: Present: Normal bowel sounds, soft, nontender, nondistended Extremity: Present: no pedal edema Neurologic: Present: other - AAO x1, moves extremities spontaneously on observation Diagnostic Studies: Abnormal Lab Results 07/28/18 07/28/18 07/28/18 Range/Units 04:55 04:55 04:55 RBC 3.77 L (4.2-5.4) M/mm3 Hgb 11.0 L (12.5-16.0) gm/dL Hct 34.0 L (37.0-47.0) % RDW 14.6 H (11.5-14.0) % Immature Gran # (Auto) 0.04 H (0.000-0.0310) K/mm3 Neutrophils # 6.7 H (1.3-6.0) K/mm3 VBG pH 7.302 L (7.32-7.43) BUN 41 H (3-23) mg/dL Creatinine 2.33 H D (0.4-1.4) mg/dL Est GFR (Non-Af Amer) 24 L D (60-130) mL/min Random Glucose 309 H (70-110) mg/dL ALT 16 L (19-67) U/L Urine Protein (NEGATIVE) mg/dL Urine Glucose (UA) (NEGATIVE) mg/dL Urine Blood (NEGATIVE) /ul Urine WBC (0-5) /hpf Ur Epithelial Cells (0-5) /hpf Urine Bacteria (NONE) Acetaminophen (10.0-30.0) mcg/mL Barbiturate Screen (NEGATIVE) 07/28/18 07/28/18 07/28/18 Range/Units 04:59 04:59 06:32 RBC (4.2-5.4) M/mm3 Hgb (12.5-16.0) gm/dL Hct (37.0-47.0) % RDW (11.5-14.0) % Immature Gran # (Auto) (0.000-0.0310) K/mm3 Neutrophils # (1.3-6.0) K/mm3 VBG pH (7.32-7.43) BUN (3-23) mg/dL Creatinine (0.4-1.4) mg/dL Est GFR (Non-Af Amer) (60-130) mL/min Random Glucose (70-110) mg/dL ALT (19-67) U/L Urine Protein 15 H (NEGATIVE) mg/dL Urine Glucose (UA) 100 H (NEGATIVE) mg/dL Urine Blood 10 H (NEGATIVE) /ul Urine WBC 5-10 H (0-5) /hpf Ur Epithelial Cells 5-10 H (0-5) /hpf Urine Bacteria 2+ H (NONE) Acetaminophen Less than 0.2 L (10.0-30.0) mcg/mL Barbiturate Screen Positive H (NEGATIVE) Laboratory Results WBC 10.0 K/mm3 (4.0-10.5) 07/28/18 04:55 RBC 3.77 M/mm3 (4.2-5.4) L 07/28/18 04:55 Hgb 11.0 gm/dL (12.5-16.0) L 07/28/18 04:55 Hct 34.0 % (37.0-47.0) L 07/28/18 04:55 MCV 90.2 fl (78-100) 07/28/18 04:55 MCH 29.2 pg (27-31) 07/28/18 04:55 MCHC 32.4 g/dl (32-36) 07/28/18 04:55 RDW 14.6 % (11.5-14.0) H 07/28/18 04:55 Plt Count 152 K/mm3 (150-450) 07/28/18 04:55 MPV 12.4 fl (8-12.5) 07/28/18 04:55 Immature Gran % (Auto) 0.40 % (0.001-0.429) 07/28/18 04:55 Immature Gran # (Auto) 0.04 K/mm3 (0.000-0.0310) H 07/28/18 04:55 Neutrophils % 67.4 % (42-75.0) 07/28/18 04:55 Lymphocytes % 24.4 % (20-51) 07/28/18 04:55 Monocytes % 5.6 % (0.0-9) 07/28/18 04:55 Eosinophils % 1.9 % (0.0-3.0) 07/28/18 04:55 Basophils % 0.3 % (0.0-1.0) 07/28/18 04:55 Nucleated RBC % 0.0 k/mm3 (0-1) 07/28/18 04:55 Neutrophils # 6.7 K/mm3 (1.3-6.0) H 07/28/18 04:55 Lymphocytes # 2.44 k/mm3 (1.5-3.5) 07/28/18 04:55 Monocytes # 0.6 k/mm3 (0.0-1.0) 07/28/18 04:55 Eosinophils # 0.2 k/mm3 (0.0-0.7) 07/28/18 04:55 Absolute Basophils 0.0 k/mm3 (0.0-0.1) 07/28/18 04:55 VBG pH 7.302 (7.32-7.43) L 07/28/18 04:55 Sodium 136 mmol/L (132-142) 07/28/18 04:55 Plasma Sodium 139 mmol/L (130-142) 07/28/18 04:55 Potassium 4.2 mmol/L (3.4-4.6) 07/28/18 04:55 Chloride 102 mmol/L (97-106) 07/28/18 04:55 Carbon Dioxide 24.8 mmol/L (24-32.6) 07/28/18 04:55 Anion Gap 13.4 mmol/L (6.8-13.8) 07/28/18 04:55 BUN 41 mg/dL (3-23) H 07/28/18 04:55 Creatinine 2.33 mg/dL (0.4-1.4) H D 07/28/18 04:55 Est GFR (Non-Af Amer) 24 mL/min (60-130) L D 07/28/18 04:55 BUN/Creatinine Ratio 17.6 (9.0-21.6) 07/28/18 04:55 Random Glucose 309 mg/dL (70-110) H 07/28/18 04:55 Calcium 9.0 mg/dL (7.9-10.9) 07/28/18 04:55 Calcium Adj for Albumin 8.7 mg/dL (8.4-10.2) 07/28/18 04:55 Total Bilirubin 0.2 mg/dL (0.0-1.1) 07/28/18 04:55 AST 12 U/L (0-48) 07/28/18 04:55 ALT 16 U/L (19-67) L 07/28/18 04:55 Alkaline Phosphatase 116 U/L (50-170) 07/28/18 04:55 Total Protein 8.1 gm/dL (6.2-8.2) 07/28/18 04:55 Albumin 4.0 gm/dl (3.4-5.0) 07/28/18 04:55 Urine Color Yellow 07/28/18 04:59 Urine Appearance Slightly cloudy (CLEAR) 07/28/18 04:59 Urine pH 6.0 pH (5.0-7.0) 07/28/18 04:59 Ur Specific [place] 1.015 SP.GR. (1.005-1.010) 07/28/18 04:59 Urine Protein 15 mg/dL (NEGATIVE) H 07/28/18 04:59 Urine Glucose (UA) 100 mg/dL (NEGATIVE) H 07/28/18 04:59 Urine Ketones 5 mg/dL (NEGATIVE) 07/28/18 04:59 Urine Blood 10 /ul (NEGATIVE) H 07/28/18 04:59 Urine Nitrate Negative (NEGATIVE) 07/28/18 04:59 Urine Bilirubin Negative mg/dl (NEGATIVE) 07/28/18 04:59 Prot Sulfosalicylic Acd Negative mg/dL (0) 07/28/18 04:59 Urine Urobilinogen Normal EU/dl (NORMAL) 07/28/18 04:59 Ur Leukocyte Esterase Negative /ul (NEGATIVE) 07/28/18 04:59 Urine RBC 0-5 /hpf (0-5) 07/28/18 04:59 Urine WBC 5-10 /hpf (0-5) H 07/28/18 04:59 Ur Epithelial Cells 5-10 /hpf (0-5) H 07/28/18 04:59 Urine Bacteria 2+ (NONE) H 07/28/18 04:59 Urine Culture Comments Culture to follow 07/28/18 04:59 Urine Opiates Screen Negative (NEGATIVE) 07/28/18 04:59 Acetaminophen Less than 0.2 mcg/mL (10.0-30.0) L 07/28/18 06:32 Barbiturate Screen Positive (NEGATIVE) H 07/28/18 04:59 Ur Phencyclidine Scrn Negative (NEGATIVE) 07/28/18 04:59 Urine Amphetamine Negative (NEGATIVE) 07/28/18 04:59 U Benzodiazepines Scrn Negative (NEGATIVE) 07/28/18 04:59 Urine Cocaine Screen Negative (NEGATIVE) 07/28/18 04:59 Urine Marijuana (THC) Negative (NEGATIVE) 07/28/18 04:59 Serum Ketones Negative (NEGATIVE) 07/28/18 04:55 Assessment/Plan - Assessment/Plan (1) Confusion Assessment: etiology ? her serum ketones are normal . Uncontrolled Diabetes mellitus due to noncompliance/dietary indescretion vs possible UTI. r/o Hyperosmolar hyperglycemic state. will get ABG and serum osmolality. her calculated serum osmolaltiy though is 303. will calculate for osmolaly gap when her measured osmolal gap results come back. ADDENDUM: Her ABG came back with Non AG Metabolic acidosis with Respiratory alkalosis. 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 Will try NaHCO3 650 mg PO TID. joe continue with IVF. Will defer insulin drip and just pu her on accucheck with Humalog coverage and continue wit her long acting insulin. Problem: Acute (2) Lethargic Assessment: etiology? same as 1. Problem: Acute (3) Diabetes mellitus type 1 Assessment: BS is elevated but serum ketones are normal. Problem: Chronic (4) Migraine Problem: Chronic Qualifiers: Migraine type: without aura Status migrainosus presence: without status migrainosus Intractability: not intractable Qualified Code(s): G43.009 - Migraine without aura, not intractable, without status migrainosus (5) Chronic kidney disease (CKD) Problem: Chronic Qualifiers: Chronic kidney disease stage: stage 4 (severe) Qualified Code(s): N18.4 - Chronic kidney disease, stage 4 (severe) (6) History of CVA (cerebrovascular accident) Problem: Chronic (7) History of kidney transplant Problem: Chronic
[2018-07-28] MEDS ORDERED: GLUCAGON,HUMAN RECOMBINANT 1 MG VIAL IJ PRN (11:09)
[2018-07-28] MEDS ORDERED: BUTALB/ACETAMINOPHEN/CAFFEINE 1 TAB TABLET PO PRN (11:09)
[2018-07-28] MEDS ORDERED: oxyCODONE HCL/ACETAMINOPHEN 1 TAB TABLET PO PRN (11:09)
[2018-07-28 11:49] LABS: BUN/Creatinine Ratio 19.8 (9.0-21.6); Calcium * 8.7 mg/dL (7.9-10.9); Carbon Dioxide 20.6 mmol/L (24-32.6); Estimated Creat Clear 27.8; Magnesium 1.8 mg/dL (1.2-2.8); Phosphorus 3.3 mg/dL (2.2-4.2); Potassium 4.6 mmol/L (3.4-4.6)
[2018-07-28] MEDS: INSULIN LISPRO 100 UNITS/ML VIAL SC SCH ×2 (11:55→16:42)
[2018-07-28] MEDS: SODIUM BICARBONATE 650 MG TABLET PO SCH (16:42)
[2018-07-28] MEDS: MYCOPHENOLATE MOFETIL 500 MG TABLET PO SCH (20:35)
[2018-07-28] MEDS: MIDODRINE HCL 2.5 MG TABLET PO SCH (20:35)
[2018-07-28] MEDS: INSULIN GLARGINE,HUM.REC.ANLOG 100 UNITS/ML VIAL SC SCH (20:36)
[2018-07-28] MEDS: TACROLIMUS ANHYDROUS 0.5 MG CAPSULE PO SCH (20:36)
[2018-07-29] MEDS ORDERED: LEVOTHYROXINE SODIUM 75 MCG TABLET PO SCH (07:00)
[2018-07-29] MEDS: INSULIN LISPRO 100 UNITS/ML VIAL SC SCH (07:09)
[2018-07-29] MEDS: TACROLIMUS ANHYDROUS 0.5 MG CAPSULE PO SCH (08:49)
[2018-07-29] MEDS: SODIUM BICARBONATE 650 MG TABLET PO SCH (08:51)
[2018-07-29] MEDS: MIDODRINE HCL 2.5 MG TABLET PO SCH (08:52)
[2018-07-29] MEDS: MYCOPHENOLATE MOFETIL 500 MG TABLET PO SCH (08:52)
[2018-07-29] MEDS: INSULIN GLARGINE,HUM.REC.ANLOG 100 UNITS/ML VIAL SC SCH (08:53)
[2018-07-29] MEDS ORDERED: predniSONE 5 MG TABLET PO SCH (09:00)
[2018-07-29] MEDS ORDERED: CHOLECALCIFEROL 5,000 UNIT TABLET PO SCH (09:00)
[2018-07-29] MEDS ORDERED: IRON POLYSACCHARIDE COMPLEX 1 CAP CAPSULE PO SCH (09:00)
[2018-07-29] MEDS ORDERED: ASPIRIN 81 MG TABLET.DR PO SCH (09:00)
--- NOTE | 2018-07-29 09:00 | DS ---
(1) Lethargic Problem: Resolved (2) Confusion Problem: Resolved (3) Uncontrolled blood glucose Problem: Acute (4) Diabetes mellitus type 1 Problem: Chronic Qualifiers: Diabetes mellitus complication status: with kidney complications Diabetes mellitus complication detail: with chronic kidney disease Chronic kidney disease stage: stage 4 (severe) Qualified Code(s): E10.22 - Type 1 diabetes mellitus with diabetic chronic kidney disease; N18.4 - Chronic kidney disease, stage 4 (severe) (5) Migraine Problem: Chronic Qualifiers: Migraine type: without aura Status migrainosus presence: without status migrainosus Intractability: not intractable Qualified Code(s): G43.009 - Migraine without aura, not intractable, without status migrainosus (6) Chronic kidney disease (CKD) Problem: Chronic Qualifiers: Chronic kidney disease stage: stage 4 (severe) Qualified Code(s): N18.4 - Chronic kidney disease, stage 4 (severe) (7) History of CVA (cerebrovascular accident) Problem: Chronic (8) History of kidney transplant Problem: Chronic Description of Stay: Lady Miller,, is a 48-year-old white female, recently established care with Dr. Stokes , with past medical history of diabetes mellitus type 1, cerebrovascular accident, hypothyroidism, kidney transplants x 2 , Mograine who was admitted to the hospital on 07/28/2018 because of altered mental status. The patient does not respond or answer my questions and does not follow my commands. She will open her eyes at times but closes it again. I am not able to get a history from her. Based on the emergency room notes, the patient was acting confused during the night. She has a history of chronic pain syndrome and has been receiving Percocet from Dr. Salinas. She recently established care with Dr. Stokes and was asking for a refill. She was referred to a pain clinic. Her urine drug screen was negative except for barbiturate. She takes Butalbital/Acetominophen for her Migraine. Her acemoniphen level was normal therefore she likely has no barbiturate overdose. Her Cr is 2.33. Her Head CTS showed no acute intracranial process going on. WBC was normal. Her UA showed bacteruria but no nitrartes, leukocyte esterase. She was given 1 dose of narcan in the emergency room which did not improve her mental status. As per ED physician she had to do sternal rub to wake her up but then she would just go back to sleep. Patient answered her name and kept saying "ow" when she is awake without being able to state where she has pain She was then admitted for further observation. She was started back on long acting insulin ( lantus as we did not have Toujeo solostar) and put on Humalog before meals. She had a BS of 61 this morning and went up to 178 after breakfast. This could be due to the fact that she takes levermir TID ( lingering effects especially with CRF) at home before her meals on her med list on top of what she received on the floor. She did not have ketonemia but ABF showed Non AG Metabolic acidosi with respiratory alkalosis . She had a positive UAG with urine pH of 6 but a normal K and also Cl. 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 She was started on PO NaHCO3. She is AAO x 2 but answers questions appropriately. She says she did not miss her medications and is compliant with her diet. She says that she could have a UTI as she gets it often and she does not have any s/sx when it happens. Her preliminary report though showed NG on her urinalysis. She is stable to be discharge and follow up with her PCP . Procedures Performed: none Results and Findings: Pending Mircobiology Results 07/28/18 05:18 Urine,Catheterized Urine Culture - Preliminary No Growth Lab Pending Results 07/28/18 04:53: Ur Random Sodium 53 07/28/18 04:53: Ur Random Chloride 44 L 07/28/18 04:53: Ur Random Potassium 19.2 07/28/18 04:55: WBC 10.0, RBC 3.77 L, Hgb 11.0 L, Hct 34.0 L, MCV 90.2, MCH 29.2 , MCHC 32.4, RDW 14.6 H, Plt Count 152, MPV 12.4, Immature Gran % (Auto) 0.40, Immature Gran # (Auto) 0.04 H, Neutrophils % 67.4, Lymphocytes % 24.4, Monocytes % 5.6, Eosinophils % 1.9, Basophils % 0.3, Nucleated RBC % 0.0, Neutrophils # 6.7 H, Lymphocytes # 2.44, Monocytes # 0.6, Eosinophils # 0.2, Absolute Basophils 0.0 07/28/18 04:55: Sodium 136, Plasma Sodium 139, Potassium 4.2, Chloride 102, Carbon Dioxide 24.8, Anion Gap 13.4, BUN 41 H, Creatinine 2.33 H D, Est GFR (Non -Af Amer) 24 L D, BUN/Creatinine Ratio 17.6, Random Glucose 309 H, Calcium 9.0, Calcium Adj for Albumin 8.7, Total Bilirubin 0.2, AST 12, ALT 16 L, Alkaline Phosphatase 116, Total Protein 8.1, Albumin 4.0, Serum Ketones Negative 07/28/18 04:55: VBG pH 7.302 L 07/28/18 04:59: Urine Color Yellow, Urine Appearance Slightly cloudy, Urine pH 6.0, Ur Specific Salley 1.015, Urine Protein 15 H, Urine Glucose (UA) 100 H, Urine Ketones 5, Urine Blood 10 H, Urine Nitrate Negative, Urine Bilirubin Negative, Prot Sulfosalicylic Acd Negative, Urine Urobilinogen Normal, Ur Leukocyte Esterase Negative, Urine RBC 0-5, Urine WBC 5-10 H, Ur Epithelial Cells 5-10 H, Urine Bacteria 2+ H, Urine Culture Comments Culture to follow 07/28/18 04:59: Urine Opiates Screen Negative, Barbiturate Screen Positive H, Ur Phencyclidine Scrn Negative, Urine Amphetamine Negative, U Benzodiazepines Scrn Negative, Urine Cocaine Screen Negative, Urine Marijuana (THC) Negative 07/28/18 06:32: Acetaminophen Less than 0.2 L 07/28/18 11:30: pCO2 30.0 L, pO2 62.0 L, HCO3 16.3 L, Total CO2 17.2 L, Base Excess -8.2 L, ABG pH 7.35, ABG O2 Sat (Measured) 91.1 L 07/28/18 11:33: Sodium 137, Plasma Sodium 142, Potassium 4.6, Chloride 104, Carbon Dioxide 20.6 L, Anion Gap 17.0 H, BUN 37 H, Creatinine 1.87 H D, Est GFR (Non-Af Amer) 31 L D, BUN/Creatinine Ratio 19.8, Random Glucose 417 H D, Calcium 8.7, Phosphorus 3.3, Magnesium 1.8 Discharge Location: Home Disposition: Home self-care Condition: Stable Discharge Activity: Activity as tolerated Discharge Diet: Consistent carbs Referrals: Yamileth Stokes MD [Primary Care Provider] - Additional Patient Instructions (free text): Follow up with Dr. Stokes next week. Prescriptions (Any new or edited meds): Insulin Lispro [Humalog] 5 units SC TIDWM #1 vial Sodium Bicarbonate 650 mg PO TID 7 Days #21 tab Complete Home Medications List: Complete Home Medication List: Levothyroxine Sodium 75 mcg PO DAILY 10/16/12 Midodrine HCl 10 mg PO BID 10/16/12 Simvastatin 20 mg PO HS 10/16/12 Alendronate Sodium 35 mg PO Q7D 01/03/14 Tacrolimus [Prograf] 5 mg PO BID 01/03/14 predniSONE [Prednisone] 5 mg PO DAILY 01/03/14 Diphenoxylate HCl/Atrop Sulf [Lomotil] 2.5 mg PO QID PRN #40 tab 10/19/15 aspirin 81 mg tablet,delayed release 81 mg PO DAILY 07/17/18 iblopocifa-muorgivdbrqrd-mfymqfhp 50 mg-325 mg-40 mg capsule 2 cap PO Q6H PRN cap 07/17/18 cholecalciferol (vitamin D3) 5,000 unit capsule 5,000 unit PO DAILY 07/17/18 glucagon (human recombinant) 1 mg injection kit 1 mg SUB-Q ONCE PRN ea loperamide 2 mg capsule 2 mg PO Q4H 07/17/18 magnesium oxide 400 mg tablet 400 mg PO BID tab 07/17/18 mycophenolate mofetil 500 mg tablet 1,000 mg PO BID tab 07/17/18 omeprazole 20 mg capsule,delayed release 20 mg PO BID 07/17/18 ondansetron 4 mg disintegrating tablet 4 mg PO Q6H PRN 07/17/18 polysaccharide iron complex 150 mg iron capsule 150 mg PO DAILY cap 07/17/18 promethazine 25 mg tablet 25 mg PO Q4H 07/17/18 oxycodone-acetaminophen 5 mg-325 mg tablet 1 tab PO Q6H PRN tab 07/18/18 insulin glargine (U-300) 300 unit/mL (1.5 mL) subcutaneous pen 18 unit SUB-Q BID ml 07/26/18 Insulin Lispro [Humalog] 5 units SC TIDWM #1 vial 07/29/18 Sodium Bicarbonate 650 mg PO TID 7 Days #21 tab 07/29/18
[2018-07-29 11:15] VITALS: BP 145/72
== END 2018-07-29 11:20 | disposition home or self-care (01) ==
LOC: MS 04:25 → ER 04:25 → MS 07:15
PROVIDERS: ADMIT Internal Medicine; ATTEND Family Medicine
DX: R40.2353 Coma scale, best motor response, localizes pain, at hospital admission; G43.919 Migraine, unspecified, intractable, without status migrainosus; Z94.0 Kidney transplant status; E03.9 Hypothyroidism, unspecified; R40.2143 Coma scale, eyes open, spontaneous, at hospital admission; N18.4 Chronic kidney disease, stage 4 (severe); R53.83 Other fatigue; E10.65 Type 1 diabetes mellitus with hyperglycemia; R41.0 Disorientation, unspecified; Z86.73 Personal history of transient ischemic attack (TIA), and cerebral infarction without residual deficits; E10.22 Type 1 diabetes mellitus with diabetic chronic kidney disease; Z94.83 Pancreas transplant status; R40.2243 Coma scale, best verbal response, confused conversation, at hospital admission; Z79.4 Long term (current) use of insulin
CPT/HCPCS: 36415; 36600; 70450; 80048; 80053; 80307; 80329; 81001; 82009; 82436; 82800; 82803; 83735; 83930; 84100; 84133; 84300; 85025; 87086; 93005; 94762; 96361; 96372; 96374; 99285; G0378; G0479; G0480

== ENCOUNTER 2021-04-28 20:36 | Observation (INO) ==
[2021-04-28] MEDS ORDERED: DEXTROSE 50%-WATER 50 ML SYRG IV ONE (20:37)
[2021-04-28] MEDS ORDERED: DEXTROSE 5%-LACTATED RINGERS 1,000 ML IV PRN (20:46)
[2021-04-28] MEDS ORDERED: ONDANSETRON HCL/PF 2 MG/ML VIAL IV ONE (20:49)
--- NOTE | 2021-04-28 20:55 | ERNOTE ---
Medical Problem HPI - General Time Seen by Provider: 04/28/21 20:43 Source: EMS Exam Limitations: clinical condition - Immun/Allergies/Home Medications Immunizations: IMMUNIZATION HX Immunizations Up to Date Yes History of Influenza Vaccine Yes Hx Pneumococcal Vaccination Yes Allergies/Adverse Reactions: Allergies gabapentin Adverse Reaction (Unknown, Verified 04/28/21 20:48) Itching Home Medications: HOME MEDICATIONS aspirin 81 mg tablet,delayed release 81 mg PO DAILY 07/17/18 [Last Taken Unknown] atorvastatin 40 mg tablet 40 mg PO DAILY 01/29/21 [Last Taken Unknown] citalopram 10 mg tablet 10 mg PO DAILY 01/29/21 [Last Taken Unknown] clopidogrel 75 mg tablet 75 mg PO DAILY 01/29/21 [Last Taken Unknown] levothyroxine 88 mcg capsule 88 mcg PO DAILY 01/29/21 [Last Taken Unknown] metoprolol tartrate 25 mg tablet 12.5 mg PO Q12H tab 01/29/21 [Last Taken Unknown] mycophenolate sodium 360 mg tablet,delayed release 360 mg PO BID tab 01/29/21 [Last Taken Unknown] prednisone 5 mg tablet 5 mg PO Q OTHER DAY 01/29/21 [Last Taken Unknown] cyanocobalamin (vitamin B-12) 100 mcg tablet 100 mcg PO DAILY 03/23/21 [Last Taken Unknown] insulin aspart U-100 100 unit/mL (3 mL) subcutaneous pen 3 unit SUBCUT TID ml 03/23/21 [Last Taken Unknown] insulin glargine 100 unit/mL (3 mL) subcutaneous pen See Rx Instructions SUBCUT DAILY #15 ml 03/23/21 [Last Taken Unknown] lancing device See Rx Instructions .ROUTE .MEDSUPPLY #1 ea 03/23/21 [Last Taken Unknown] tacrolimus 0.5 mg capsule, immediate-release 1 mg PO BID cap 03/23/21 [Last Taken Unknown] glucagon (human recombinant) 1 mg solution for injection 1 mg SUBCUT Q20M PRN #1 ea 04/07/21 [Last Taken Unknown] blood-glucose meter See Rx Instructions .ROUTE .MEDSUPPLY #1 ea 04/19/21 [Last Taken Unknown] blood sugar diagnostic See Rx Instructions .ROUTE .MEDSUPPLY #200 ea 04/22/21 [Last Taken Unknown] - History of Present History Narrative: Patient brought in by EMS with report of hypoglycemia at home and unresponsiveness. EMS state that the states her blood sugar was over 500 and she was given 7 units of insulin. She then became less responsive and they found her blood sugar to be "low". On arrival EMS also found blood sugar to be low on their monitor. EMS was unable to get IV access in route and IV access was obtained soon after her arrival. Are glucose monitor also found blood sugar below measurable upon arrival. 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 Pancreas replaced by transplant Onset Date: ~03/2008 Family History: Family History (Last Reviewed 04/28/21 @ 20:50 by Devon Servin DO) Mother Hypertension Migraine Obesity Thyroid disease Grandfather Cancer maternal-lung Diabetes Grandmother Cancer maternal-breast Diabetes Heart disease Obesity Father Diabetes Uncle Cancer maternal and maternal great uncle-lung ca Aunt Cancer maternal great aunt-lung ca Social History: (Last Reviewed 04/28/21 @ 20:50 by Devon Servin DO) Social History: Marital status: household members: spouse current occupational status: disabled Highest level of school completed/degree received: high school graduate Service: No Tobacco: Smoking Status: Current some day smoker tobacco type: cigarettes Alcohol: alcohol intake: never Substance Use: substance use type: does not use Dietary Habits: caffeine: Yes Type: tea Physical Exam - Physical Exam General Appearance: Present: wd/wn, lethargic - Opened eyes with mild palpation of abdomen. Head Exam: Present: normal inspection, no evidence of injury Eye Exam: Normal inspection: bilateral Ears, Nose, Throat: Present: normal ENT inspection Neck: Present: normal inspection Respiratory: Present: no respiratory distress, lungs clear, other - Sonorous respirations Cardiovascular/Chest: Present: regular rate, rhythm, no murmur Gastrointestinal/Abdominal: Present: nondistended, soft Extremity Exam: Present: normal inspection, normal range of motion, no edema Neurological Exam: Present: alert, oriented, normal mood/affect Skin Exam: Present: normal color, warm/dry Lymphatic Exam: Present: no adenopathy Progress - Results and Orders Patient's Lab Results:: I have reviewed the patient's lab results. - Vital Signs Patient's Vital Signs:: I have reviewed the patient's vital signs. - EKG EKG #1 EKG: NSR, LVH EKG read: Interp. by me - X-Ray X-Ray #1 X-Ray: chest Interpretation: Interp. by me X-ray Comments: No infiltrate or effusion. Cardiac silhouette appears normal. No pneumothorax. Bony elements appear intact - Progress/Reassessment Progress Note-Subjective: 04/28/21 20:53 Patient given 1 amp of D50 and blood sugar soon came out to 227. Patient was started on D5 LR at 500 mils per hour and blood sugars will be assessed frequently 04/29/21 00:34 We have continued patient on D5 half-normal saline at five hundred mils per hour with attempts to reduce down to two hundred fifty mils per hour which resulted in patient's blood sugar dropping fairly quickly. I talked with Dr. Vieira about admission he agrees with admission for treatment resistant hypoglycemia Departure Clinical Impression: Hypoglycemia due to insulin Diabetes mellitus type 1 Qualifiers: Diabetes mellitus complication status: with other specified complication Qualified Code(s): E10.69 - Type 1 diabetes mellitus with other specified complication - Departure Disposition: Still a patient Condition: Serious
[2021-04-28] MEDS ORDERED: PROCHLORPERAZINE EDISYLATE 5 MG/ML VIAL IV ONE (21:14)
[2021-04-28 21:15] LABS: Hematocrit 34.4 % (37.0-47.0); Hemoglobin 10.2 gm/dL (12.5-16.0); Mean Cell Volume 96.1 fl (78-100); Mean Corpuscular Hemoglobin 28.5 pg (27-31); Mean Corpuscular Hgb Conc 29.7 g/dl (32-36); Mean Platelet Volume 11.9 fl (8-12.5); Neutrophil # 3.2 K/mm3 (1.3-6.0); Neutrophil % 47.6 % (42-75.0); Platelet Count 166 K/mm3 (150-450); Red Blood Count 3.58 M/mm3 (4.2-5.4); Red Cell Distribution Width 15.4 % (11.5-14.0); White Blood Count 6.7 K/mm3 (4.0-10.5)
[2021-04-28 21:29] LABS: ALT 155 U/L (19-67); AST 81 U/L (0-48); Albumin * 3.7 gm/dl (3.4-5.0); Alkaline Phosphatase * 125 U/L (50-170); Anion Gap 12.3 mmol/L (6.8-13.8); BUN/Creatinine Ratio 18.9 (9.0-21.6); Bilirubin, Total 0.2 mg/dL (0.0-1.1); Blood Urea Nitrogen 33 mg/dL (3-23); Ca. Corrected For Albumin 8.6 mg/dL (8.4-10.2); Calcium * 8.7 mg/dL (7.9-10.9); Carbon Dioxide 23.3 mmol/L (24-32.6); Chloride 111 mmol/L (97-106); Glucose * 157 mg/dL (70-110); Potassium 3.6 mmol/L (3.4-4.6); Sodium 143 mmol/L (132-142); Total Protein 7.6 gm/dL (6.2-8.2)
[2021-04-28 21:56] LABS: Urine Bilirubin Negative (NEGATIVE); Urine Ketone Negative (NEGATIVE); Urine Nitrite Negative (NEGATIVE); Urine Protein 100 mg/dL (NEGATIVE); Urine Urobilinogen Normal (NORMAL)
[2021-04-28 22:08] LABS: Cocaine Ur Negative (NEGATIVE); Urine Barbiturate Negative (NEGATIVE); Urine Benzodiazepines Negative (NEGATIVE); Urine Opiates Negative (NEGATIVE); Urine PCP Negative (NEGATIVE); Urine THC Negative (NEGATIVE)
[2021-04-28 22:12] LABS: Urine Appearance Clear (CLEAR); Urine Bacteria TRACE; Urine Blood 5 /ul (NEGATIVE); Urine Color Yellow; Urine RBC 0-5 /hpf (0-5); Urine WBC 0-5 /hpf (0-5)
[2021-04-28] MEDS: DEXTROSE 5%-0.5 NORMAL SALINE 1,000 ML IV PRN (23:15)
[2021-04-29] MEDS: DEXTROSE 5%-0.5 NORMAL SALINE 1,000 ML IV PRN (01:47)
[2021-04-29] MEDS ORDERED: INSULIN LISPRO 100 UNITS/ML VIAL SC ONE ×3 (06:01→19:23)
[2021-04-29] MEDS: ASPIRIN 81 MG TABLET.DR PO SCH (11:13)
[2021-04-29] MEDS: METOPROLOL TARTRATE 25 MG TABLET PO SCH ×2 (11:13→20:45)
[2021-04-29] MEDS: LEVOTHYROXINE SODIUM 88 MCG TABLET PO SCH (11:13)
[2021-04-29] MEDS: CLOPIDOGREL BISULFATE 75 MG TABLET PO SCH (11:13)
[2021-04-29] MEDS: CITALOPRAM HYDROBROMIDE 10 MG TABLET PO SCH (11:13)
[2021-04-29] MEDS: TACROLIMUS ANHYDROUS 0.5 MG CAPSULE PO SCH ×2 (11:15→20:26)
[2021-04-29] MEDS: INSULIN GLARGINE,HUM.REC.ANLOG 100 UNITS/ML VIAL SC SCH (11:28)
[2021-04-29] MEDS ORDERED: DEXTROSE 50%-WATER 50 ML SYRG IV ONE (16:01)
--- NOTE | 2021-04-29 19:25 | HP ---
Chief Complaint - Chief Complaint Date of Service: 04/29/21 Time of Service: 19:25 Chief Complaint: somnolenmt, hypoglycemia History of Present Illness: Patient brought into the hospital via EMS after they were cold due to her somnolence and low blood sugars. She states her gave her "7 units" the night she came in. BS was undetectable in the ER, required an amp of D50 and then she was started on a D5 infusion. Blood work was fairly benign on the ER. Chest XR showed no acute cardiopulmonary process. Patient was admitted to the floor for monitoring of blood sugars. This morning her sugar was over 500 and the infusion was stopped. She was given 25 units of short acting and her home long acting was restarted. Her vitals are stable, she is very pleasant, she has no concerns other then making sure she gets good instruction on how to take her insuling before being discahrged home. 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 Pancreas replaced by transplant Onset Date: ~03/2008 Family History: Family History (Last Reviewed 04/28/21 @ 20:50 by Devon Servin DO) Mother Hypertension Migraine Obesity Thyroid disease Grandfather Cancer maternal-lung Diabetes Grandmother Cancer maternal-breast Diabetes Heart disease Obesity Father Diabetes Uncle Cancer maternal and maternal great uncle-lung ca Aunt Cancer maternal great aunt-lung ca Social History: (Last Reviewed 04/28/21 @ 20:50 by Devon Servin DO) Social History: Marital status: household members: spouse current occupational status: disabled Highest level of school completed/degree received: high school graduate Service: No Tobacco: Smoking Status: Current some day smoker tobacco type: cigarettes Alcohol: alcohol intake: never Substance Use: substance use type: does not use Dietary Habits: caffeine: Yes Type: tea Review Of Systems (GEN) - Review of Systems Generalized/Overall Review: Present: No Symptoms Reported EENTM: Present: No Symptoms Reported Respiratory: Present: No Symptoms Reported Cardiac: Present: No Symptoms Reported Abdominal: Present: No Symptoms Reported Genitourinary: Present: No Symptoms Reported Musculoskeletal: Present: No Symptoms Reported Neurological: Present: No Symptoms Reported Skin: Present: No Symptoms Reported Endocrine: Present: No Symptoms Reported Immunizations: IMMUNIZATION HX Immunizations Up to Date Yes History of Influenza Vaccine Yes Hx Pneumococcal Vaccination Yes Allergies/Adverse Reactions: Allergies Allergy/AdvReac Type Severity Reaction Status Date / Time gabapentin AdvReac Unknown Itching Verified 04/28/21 20:48 Home Medications: HOME MEDICATIONS aspirin 81 mg tablet,delayed release 81 mg PO DAILY 07/17/18 [Last Taken Unknown] atorvastatin 40 mg tablet 40 mg PO DAILY 01/29/21 [Last Taken Unknown] citalopram 10 mg tablet 10 mg PO DAILY 01/29/21 [Last Taken Unknown] clopidogrel 75 mg tablet 75 mg PO DAILY 01/29/21 [Last Taken Unknown] levothyroxine 88 mcg capsule 88 mcg PO DAILY 01/29/21 [Last Taken Unknown] metoprolol tartrate 25 mg tablet 12.5 mg PO Q12H tab 01/29/21 [Last Taken Unknown] mycophenolate sodium 360 mg tablet,delayed release 360 mg PO BID tab 01/29/21 [Last Taken Unknown] prednisone 5 mg tablet 5 mg PO Q OTHER DAY 01/29/21 [Last Taken Unknown] cyanocobalamin (vitamin B-12) 100 mcg tablet 100 mcg PO DAILY 03/23/21 [Last Taken Unknown] insulin aspart U-100 100 unit/mL (3 mL) subcutaneous pen 3 unit SUBCUT TID ml 03/23/21 [Last Taken Unknown] insulin glargine 100 unit/mL (3 mL) subcutaneous pen See Rx Instructions SUBCUT DAILY #15 ml 03/23/21 [Last Taken Unknown] lancing device See Rx Instructions .ROUTE .MEDSUPPLY #1 ea 03/23/21 [Last Taken Unknown] tacrolimus 0.5 mg capsule, immediate-release 1 mg PO BID cap 03/23/21 [Last Taken Unknown] glucagon (human recombinant) 1 mg solution for injection 1 mg SUBCUT Q20M PRN #1 ea 04/07/21 [Last Taken Unknown] blood-glucose meter See Rx Instructions .ROUTE .MEDSUPPLY #1 ea 04/19/21 [Last Taken Unknown] blood sugar diagnostic See Rx Instructions .ROUTE .MEDSUPPLY #200 ea 04/22/21 [Last Taken Unknown] Exam - Exam Vital Signs: Vital Signs - Last Taken Temp 37 C 04/29/21 19:12 Pulse 71 04/29/21 19:12 Resp 16 04/29/21 19:12 BP 151/59 H 04/29/21 19:12 Pulse Ox 98 04/29/21 19:12 Constitutional: Present: Alert, Oriented x3, Cooperative, No distress ENT Exam: Present: normal ENT inspection, hearing grossly normal Eye Exam: bilateral eye: normal inspection, EOMI Respiratory: Present: lungs clear, normal breath sounds, no respiratory distress Cardiovascular/Chest: Present: regular rate, rhythm, no murmur Abdomen: Present: soft, nontender, nondistended Skin Exam: Present: normal color, warm/dry Appearance: Present: appropriate appearance, appropriate insight Eye contact: Present: cooperative, good eye contact Thoughts: Present: normal thought pattern, normal mood /affect Diagnostic Studies: Abnormal Lab Results 04/28/21 04/28/21 04/28/21 Range/Units 21:10 21:10 21:30 RBC 3.58 L (4.2-5.4) M/mm3 Hgb 10.2 L (12.5-16.0) gm/dL Hct 34.4 L (37.0-47.0) % MCHC 29.7 L (32-36) g/dl RDW 15.4 H (11.5-14.0) % Eosinophils % 4.2 H (0.0-3.0) % Sodium 143 H (132-142) mmol/L Plasma Sodium 144 H (130-142) mmol/L Chloride 111 H (97-106) mmol/L Carbon Dioxide 23.3 L (24-32.6) mmol/L BUN 33 H (3-23) mg/dL Creatinine 1.75 H D (0.4-1.4) mg/dL Est GFR (Non-Af Amer) 33 L D (60-130) mL/min Random Glucose 157 H (70-110) mg/dL AST 81 H (0-48) U/L ALT 155 H (19-67) U/L Urine Protein 100 H (NEGATIVE) mg/dL Urine Blood 5 H (NEGATIVE) /ul 04/29/21 Range/Units 16:23 RBC (4.2-5.4) M/mm3 Hgb (12.5-16.0) gm/dL Hct (37.0-47.0) % MCHC (32-36) g/dl RDW (11.5-14.0) % Eosinophils % (0.0-3.0) % Sodium (132-142) mmol/L Plasma Sodium (130-142) mmol/L Chloride (97-106) mmol/L Carbon Dioxide (24-32.6) mmol/L BUN (3-23) mg/dL Creatinine (0.4-1.4) mg/dL Est GFR (Non-Af Amer) (60-130) mL/min Random Glucose 173 H (70-110) mg/dL AST (0-48) U/L ALT (19-67) U/L Urine Protein (NEGATIVE) mg/dL Urine Blood (NEGATIVE) /ul Laboratory Results WBC 6.7 K/mm3 (4.0-10.5) 04/28/21 21:10 RBC 3.58 M/mm3 (4.2-5.4) L 04/28/21 21:10 Hgb 10.2 gm/dL (12.5-16.0) L 04/28/21 21:10 Hct 34.4 % (37.0-47.0) L 04/28/21 21:10 MCV 96.1 fl (78-100) 04/28/21 21:10 MCH 28.5 pg (27-31) 04/28/21 21:10 MCHC 29.7 g/dl (32-36) L 04/28/21 21:10 RDW 15.4 % (11.5-14.0) H 04/28/21 21:10 Plt Count 166 K/mm3 (150-450) 04/28/21 21:10 MPV 11.9 fl (8-12.5) 04/28/21 21:10 Immature Gran % (Auto) 0.30 % (0.001-0.429) 04/28/21 21:10 Immature Gran # (Auto) 0.02 K/mm3 (0.000-0.0310) 04/28/21 21:10 Neutrophils % 47.6 % (42-75.0) 04/28/21 21:10 Lymphocytes % 41.9 % (20-51) 04/28/21 21:10 Monocytes % 5.4 % (0.0-9) 04/28/21 21:10 Eosinophils % 4.2 % (0.0-3.0) H 04/28/21 21:10 Basophils % 0.6 % (0.0-1.0) 04/28/21 21:10 Nucleated RBC % 0.0 k/mm3 (0-1) 04/28/21 21:10 Neutrophils # 3.2 K/mm3 (1.3-6.0) 04/28/21 21:10 Lymphocytes # 2.80 k/mm3 (1.5-3.5) 04/28/21 21:10 Monocytes # 0.4 k/mm3 (0.0-1.0) 04/28/21 21:10 Eosinophils # 0.3 k/mm3 (0.0-0.7) 04/28/21 21:10 Absolute Basophils 0.0 k/mm3 (0.0-0.1) 04/28/21 21:10 Sodium 143 mmol/L (132-142) H 04/28/21 21:10 Plasma Sodium 144 mmol/L (130-142) H 04/28/21 21:10 Potassium 3.6 mmol/L (3.4-4.6) D 04/28/21 21:10 Chloride 111 mmol/L (97-106) H 04/28/21 21:10 Carbon Dioxide 23.3 mmol/L (24-32.6) L 04/28/21 21:10 Anion Gap 12.3 mmol/L (6.8-13.8) 04/28/21 21:10 BUN 33 mg/dL (3-23) H 04/28/21 21:10 Creatinine 1.75 mg/dL (0.4-1.4) H D 04/28/21 21:10 Est GFR (Non-Af Amer) 33 mL/min (60-130) L D 04/28/21 21:10 BUN/Creatinine Ratio 18.9 (9.0-21.6) 04/28/21 21:10 Random Glucose 173 mg/dL (70-110) H 04/29/21 16:23 Calcium 8.7 mg/dL (7.9-10.9) 04/28/21 21:10 Calcium Adj for Albumin 8.6 mg/dL (8.4-10.2) 04/28/21 21:10 Total Bilirubin 0.2 mg/dL (0.0-1.1) 04/28/21 21:10 AST 81 U/L (0-48) H 04/28/21 21:10 ALT 155 U/L (19-67) H 04/28/21 21:10 Alkaline Phosphatase 125 U/L (50-170) 04/28/21 21:10 Total Protein 7.6 gm/dL (6.2-8.2) 04/28/21 21:10 Albumin 3.7 gm/dl (3.4-5.0) 04/28/21 21:10 Urine Color Yellow 04/28/21 21:30 Urine Appearance Clear (CLEAR) 04/28/21 21:30 Urine pH 6.0 pH (5.0-7.0) 04/28/21 21:30 Ur Specific [place] 1.020 SP.GR. (1.005-1.010) 04/28/21 21:30 Urine Protein 100 mg/dL (NEGATIVE) H 04/28/21 21:30 Urine Glucose (UA) Negative mg/dL (NEGATIVE) 04/28/21 21:30 Urine Ketones Negative mg/dL (NEGATIVE) 04/28/21 21:30 Urine Blood 5 /ul (NEGATIVE) H 04/28/21 21:30 Urine Nitrate Negative (NEGATIVE) 04/28/21 21:30 Urine Bilirubin Negative mg/dl (NEGATIVE) 04/28/21 21:30 Urine Urobilinogen Normal EU/dl (NORMAL) 04/28/21 21:30 Ur Leukocyte Esterase Negative /ul (NEGATIVE) 04/28/21 21:30 Urine RBC 0-5 /hpf (0-5) 04/28/21 21:30 Urine WBC 0-5 /hpf (0-5) 04/28/21 21:30 Ur Epithelial Cells 0-5 /hpf (0-5) 04/28/21 21:30 Urine Bacteria Trace (NONE) 04/28/21 21:30 Urine Culture Comments No culture indicated 04/28/21 21:30 Urine Opiates Screen Negative (NEGATIVE) 04/28/21 21:30 Barbiturate Screen Negative (NEGATIVE) 04/28/21 21:30 Ur Phencyclidine Scrn Negative (NEGATIVE) 04/28/21 21:30 Urine Amphetamine Negative (NEGATIVE) 04/28/21 21:30 U Benzodiazepines Scrn Negative (NEGATIVE) 04/28/21 21:30 Urine Cocaine Screen Negative (NEGATIVE) 04/28/21 21: Urine Marijuana (THC) Negative (NEGATIVE) 04/28/21: Ethyl Alcohol Less than 3.0 mg/dL (0.0-10.0) 04/28/21 21:10 SARS-CoV-2 (PCR) Not detected (NotDetected) 04/29/21 00:35 Assessment/Plan - Narrative Narrative: Patient is pleasant and sugars no longer very low. Will restart her long acting and order sliding scale insulin with blood sugar checks ACHS. Will cehck an A1c tomorrow morning as she has not had this done in a long time and we have no idea how controlled she is on current treatment plan. She takes 15 units of glargine in the am and 8 in the PM, she takes 5 units of short acting insulin for BS greater then 150 (additional 5 units for every 50 over 150/Blood sugar reading). Will adjust tx throughout the day as needed. Did give her an additional 25 units this morning and will monitor throughout the day and adjust as needed until we get her stable. Resume daily medications. She came in after midnight and so will likely keep her overnight while we work on her sugars until I have an idea of how her sugars respond to insulin and can adjust accordingly. Will give amp D50 for low numbers. Either discharge home later today if she stabilizes and sugars are ok or tomorrow. She came in after midnight. Nurse to call with questions or concerns. - Assessment/Plan (1) Hypoglycemia due to insulin Problem: Acute (2) Confusion Problem: Resolved (3) Lethargic Problem: Resolved (4) Diabetes mellitus type 1 Problem: Chronic Qualifiers: Diabetes mellitus complication status: with other specified complication Qualified Code(s): E10.69 - Type 1 diabetes mellitus with other specified complication (5) History of kidney transplant Problem: Chronic
[2021-04-29] MEDS ORDERED: INSULIN GLARGINE,HUM.REC.ANLOG 100 UNITS/ML VIAL SC SCH (21:00)
[2021-04-29] MEDS ORDERED: ROSUVASTATIN CALCIUM 20 MG TABLET PO SCH (21:00)
[2021-04-30] MEDS ORDERED: DEXTROSE 50%-WATER 50 ML SYRG IV ONE ×2 (03:54→15:00)
[2021-04-30] MEDS: LEVOTHYROXINE SODIUM 88 MCG TABLET PO SCH (07:15)
[2021-04-30] MEDS: TACROLIMUS ANHYDROUS 0.5 MG CAPSULE PO SCH (09:12)
[2021-04-30] MEDS: CLOPIDOGREL BISULFATE 75 MG TABLET PO SCH (09:12)
[2021-04-30] MEDS: ASPIRIN 81 MG TABLET.DR PO SCH (09:12)
[2021-04-30] MEDS: INSULIN GLARGINE,HUM.REC.ANLOG 100 UNITS/ML VIAL SC SCH (09:12)
[2021-04-30] MEDS: CITALOPRAM HYDROBROMIDE 10 MG TABLET PO SCH (09:12)
[2021-04-30] MEDS: METOPROLOL TARTRATE 25 MG TABLET PO SCH (09:12)
[2021-04-30] MEDS ORDERED: INSULIN LISPRO 100 UNITS/ML VIAL SC SCH (12:00)
--- NOTE | 2021-04-30 14:32 | DS ---
(1) Hypoglycemia due to insulin Problem: Acute (2) Confusion Problem: Resolved (3) Lethargic Problem: Resolved (4) Diabetes mellitus type 1 Problem: Chronic Qualifiers: Diabetes mellitus complication status: with other specified complication Qualified Code(s): E10.69 - Type 1 diabetes mellitus with other specified complication (5) History of kidney transplant Problem: Chronic Date of Discharge:: 04/30/21 Hospital Course: 51-year-old female presented to the hospital with hyperglycemia secondary to over insulin use. Patient required amp of D50 and D5 infusion for the first 10 hours while she was here. Sugars responded and she was restarted on her home insulin dose with sliding scale. Following the cessation of her infusion her sugars were over 500, she was given 25 units of short acting insulin which did drop her low to the point where she became symptomatic again and required an additional amp of D50. Since then her sugars have ranged between the 150s to upper 200s. Insulin has been adjusted and patient will be discharged home with new instructions on how to take her insulin but patient only to follow-up with PCP in 2 weeks for ongoing modification of her treatment plan. No other changes to her medications. Vital signs been stable. Patient will call the hospital with any questions or concerns that she may have. Long-acting insulin adjusted at discharge. Patient is to take 20 units of Lantus every morning, 10 units of Lantus every afternoon. She is to take 5 units of her short acting insulin prior to her meals of her blood sugars greater than 150. Again she can follow-up with her PCP for further adjustments as needed. Procedures Performed: none Results and Findings: Pending Mircobiology Results 04/28/21 21:45 Blood Blood Culture - Preliminary NO GROWTH 24 HOURS 04/28/21 21:10 Blood Blood Culture - Preliminary NO GROWTH 24 HOURS Lab Pending Results 04/28/21 21:10: Sodium 143 H, Plasma Sodium 144 H, Potassium 3.6 D, Chloride 111 H, Carbon Dioxide 23.3 L, Anion Gap 12.3, BUN 33 H, Creatinine 1.75 H D, Est GFR (Non-Af Amer) 33 L D, BUN/Creatinine Ratio 18.9, Random Glucose 157 H, Calcium 8.7, Calcium Adj for Albumin 8.6, Total Bilirubin 0.2, AST 81 H, ALT 155 H, Alkaline Phosphatase 125, Total Protein 7.6, Albumin 3.7, Ethyl Alcohol Less than 3.0 04/28/21 21:10: WBC 6.7, RBC 3.58 L, Hgb 10.2 L, Hct 34.4 L, MCV 96.1, MCH 28.5, MCHC 29.7 L, RDW 15.4 H, Plt Count 166, MPV 11.9, Immature Gran % (Auto) 0.30, Immature Gran # (Auto) 0.02, Neutrophils % 47.6, Lymphocytes % 41.9, Monocytes % 5.4, Eosinophils % 4.2 H, Basophils % 0.6, Nucleated RBC % 0.0, Neutrophils # 3.2, Lymphocytes # 2.80, Monocytes # 0.4, Eosinophils # 0.3, Absolute Basophils 0.0 04/28/21 21:30: Urine Color Yellow, Urine Appearance Clear, Urine pH 6.0, Ur Specific [place] 1.020, Urine Protein 100 H, Urine Glucose (UA) Negative, Urine Ketones Negative, Urine Blood 5 H, Urine Nitrate Negative, Urine Bilirubin Negative, Urine Urobilinogen Normal, Ur Leukocyte Esterase Negative, Urine RBC 0-5, Urine WBC 0-5, Ur Epithelial Cells 0-5, Urine Bacteria Trace, Urine Culture Comments No culture indicated 04/28/21 21:30: Urine Opiates Screen Negative, Barbiturate Screen Negative, Ur Phencyclidine Scrn Negative, Urine Amphetamine Negative, U Benzodiazepines Scrn Negative, Urine Cocaine Screen Negative, Urine Marijuana (THC) Negative 04/29/21 00:35: SARS-CoV-2 (PCR) Not detected 04/29/21 16:23: Random Glucose 173 H Discharge Location: Home Disposition: Home self-care Condition: Stable Discharge Activity: Activity as tolerated Discharge Diet: Consistent carbs Referrals: Candy Quintero MD [Primary Care Provider] - Two Weeks Prescriptions (Any new or edited meds): Insulin Aspart [Insulin Aspart Flexpen] 5 unit SUBCUT TID PRN #10 ml PRN Reason: Hyperglycemia Transmission Status: Pending to [facility] Insulin Glargine,Hum.rec.anlog [Lantus Solostar] See Rx Instructions SUBCUT DAILY #20 ml Transmission Status: Pending to [facility] Complete Home Medications List: Complete Home Medication List: aspirin 81 mg tablet,delayed release 81 mg PO DAILY 07/17/18 atorvastatin 40 mg tablet 40 mg PO DAILY 01/29/21 citalopram 10 mg tablet 10 mg PO DAILY 01/29/21 clopidogrel 75 mg tablet 75 mg PO DAILY 01/29/21 levothyroxine 88 mcg capsule 88 mcg PO DAILY 01/29/21 metoprolol tartrate 25 mg tablet 12.5 mg PO Q12H tab 01/29/21 mycophenolate sodium 360 mg tablet,delayed release 360 mg PO BID tab 01/29/21 prednisone 5 mg tablet 5 mg PO Q OTHER DAY 01/29/21 cyanocobalamin (vitamin B-12) 100 mcg tablet 100 mcg PO DAILY 03/23/21 lancing device See Rx Instructions .ROUTE .MEDSUPPLY #1 ea 03/23/21 tacrolimus 0.5 mg capsule, immediate-release 1 mg PO BID cap 03/23/21 glucagon (human recombinant) 1 mg solution for injection 1 mg SUBCUT Q20M PRN #1 ea 04/07/21 blood-glucose meter See Rx Instructions .ROUTE .MEDSUPPLY #1 ea 04/19/21 blood sugar diagnostic See Rx Instructions .ROUTE .MEDSUPPLY #200 ea 04/22/21 Insulin Aspart [Insulin Aspart Flexpen] 5 unit SUBCUT TID PRN #10 ml 04/30/21 Insulin Glargine,Hum.rec.anlog [Lantus Solostar] See Rx Instructions SUBCUT DAILY #20 ml 04/30/21
[2021-04-30 16:46] VITALS: BP 162/75
== END 2021-04-30 16:55 | disposition home or self-care (01) ==
LOC: ER 20:36 → MS 20:36
PROVIDERS: ADMIT Family Medicine; ATTEND Internal Medicine